=== PATIENT | male | born 1950 | race Caucasian/White ===

== ENCOUNTER 2017-09-07 18:25 | Inpatient (IN) | payer OTHER ==
--- OUTSIDE RECORDS SUMMARY | 2017-09-07 18:27 | XMS REPORT | Clinical Summary ---
:1950 Author Organization [facility] Address [address] [place] [phone] Phone Care Team Providers Name Role Phone Unavailable Primary Care Provider Unavailable Allergies Not on File Current Medications Not on file Active Problems Not on file Social History Tobacco Use Types Packs/Day Years Used Date Never Assessed Sex Assigned at Date Recorded Not on file Last Filed Vital Signs Not on file Plan of Treatment Not on file Results Not on fileafter 09/06/2016
--- OUTSIDE RECORDS SUMMARY | 2017-09-07 18:28 | XMS REPORT ---
:1950 [facility] Address Formerly [facility] Robin Joyner [address] [place] [id number] Care Team Providers Name Role Phone Unavailable Unavailable Unavailable Problems This patient has no known problems. Allergies, Adverse Reactions, Alerts This patient has no known allergies or adverse reactions. Medications This patient has no known medications. Results Test Description Test Time Test Comments Text Results Atomic Results Result Comments NM BONE SPECT SCAN CLINICAL INDICATION: dx: m43.26, m48.06, lumbar spine abnormality, chronic lower back pain, rt rib pain, left arm fx beforeMODALITY: One[employer] dual head gamma cameraTECHNIQUE: 25 mCi Tc 99m MDP are injected IV. After a suitable time delay, whole body imaging images were obtained. SPECT imaging of the lumbar spine is performed with computer and physician-assisted 2-D and 3-D reconstruction.FINDINGS:COMPARISON: Lumbar spine performed 05/24/2017.Global fusion has been accomplished at L4-5. Five lumbar-type vertebra are present. Anterior spondylosis is most prominent at L1-2 and L2-3. 3.5 mm retrolisthesis of L3 is noted in the neutral position. This increases to 5.0 mm in flexion and measures 3.5 mm in extension.Symmetric bilateral renal function is observed.Moderate arthritic uptake is noted at the acromioclavicular joints bilaterally. Mild bilateral glenohumeral, mild to moderate bilateral sternoclavicular, mild to moderate medial compartment left knee, mild left ankle and bilateral midfoot arthritis is also seen. There is mild diffuse thoracic spondylosis observed.SPECT imaging of the lumbar spine demonstrates no significant intervertebral disc uptake to be present. There is moderate uptake present at the left L5-S1 facet. Mild uptake is seen at the right L5-S1 facet.IMPRESSION:See comments above. Activity on the left may lie within the facet or represent reactive changes related to trans pedicle screw.PQRS 147: [id number]
--- NOTE | 2017-09-07 19:23 | RAD REPORT ---
EXAM DESCRIPTION: RAD - Chest Single View - 09/07/2017 6:54 pm CLINICAL HISTORY: Cough COMPARISON: March 2017 TECHNIQUE: AP portable chest image was obtained 1849 hours . FINDINGS: Linear atelectasis or scarring in the left base. No peripheral mass or consolidation. Smal l granuloma seen in the right lung field. Lung markings are not substantially different the compariso n. Trachea is midline. Heart and vasculature are normal. No measurable pleural effusion and no pneumo thorax. No gross bony abnormality seen. No acute aortic findings suspected. IMPRESSION: No acute cardiopulmonary process. Chronic chest findings, detailed above, are similar to the comparison study.
--- NOTE | 2017-09-07 19:28 | RAD REPORT ---
EXAM DESCRIPTION: CT - Stone Protocol - 09/07/2017 6:57 pm CLINICAL HISTORY: Abdominal pain, back pain, nausea, fever COMPARISON: CT study November 2015 TECHNIQUE: Axial 5 mm thick images were obtained without oral or IV contrast. The [id number] span s the entirety of the system partially obscuring uppermost abdomen and lung bases. All CT scans are performed using dose optimization technique as appropriate and may include automated exposure control or mA/KV adjustment according to patient size. FINDINGS: No hydronephrosis is present and no obstructing ureteral calculi. No suspicious renal mass es. Isodense masses and pyelonephritis are not excluded on a stone protocol CT scan. Urinary bladder is contracted limiting detail. No bladder calculi. Prostate gland is normal size. There are numerous central calcifications similar to prior examination. Seminal vesicles within normal limits. Liver shows a mild diffuse fatty infiltration. No focal liver lesion. No spleen or pancreatic acute f inding. Cholecystectomy clips are present. No biliary tree dilatation. No significant adrenal finding . No suspicious bowel findings. No appendicitis. There is a very small fat only umbilical hernia. Bilateral inguinal hernia surgical changes are noted . No mass or bulky lymphadenopathy. No free air, free fluid or inflammatory stranding. Disc and bony degenerative changes are present. There is postsurgical change in the lower lumbar spin e. IMPRESSION: No bowel obstruction, free air or surgically emergent finding. No hydronephrosis or obstructing calculus. Isodense masses and pyelonephritis are not excluded on sto ne protocol technique.Urinary bladder is too contracted for assessment. Disc and bony degenerative change along with postsurgical change. No acute bone or disc finding ident ifiable. Mild fatty infiltration of the liver.
[2017-09-07] MEDS ORDERED: CEFTRIAXONE 1000 MG/VIAL ONE (19:38)
[2017-09-07] MEDS ORDERED: NA CHLORIDE 0.9% 100 ML IV ONE (19:38)
[2017-09-07] MEDS ORDERED: NA CHLORIDE 0.9% 1,000 ML ONE (19:38)
[2017-09-07 19:48] LABS: Absolute Lymphocytes (CBC) 1.2 K/uL (0.7-4.9); Absolute Monocytes 1.2 K/uL (0.1-1.3); Absolute Neutrophil 8.8 K/uL (1.8-8.0); Basophils % 0.4 % (0-1.3); Eosinophils % 0.5 % (0-4.4); Hematocrit 44.2 % (39.6-49.0); Lymphocytes % 10.3 % (15.3-44.8); MCH 32.2 pg (27.0-35.0); MCV 94.6 fL (80-100); MPV 8.7 fL (7.6-11.3); Monocytes % 10.4 % (3.3-12.3); RBC Red Blood Cell Count 4.67 M/uL (4.33-5.43)
[2017-09-07 19:50] LABS: Urine Blood TRACE (NEG); Urine Glucose NEGATIVE (NEG); Urine Protein NEGATIVE (NEG)
[2017-09-07 19:52] LABS: Protime INR 1.07
[2017-09-07 19:58] LABS: Bicarbonate 28 mEq/L (21-31); Glucose Level 101 mg/dL (65-120); Lipase 20 U/L (22-51); Sodium Level 135 mEq/L (135-145)
[2017-09-07 20:03] LABS: ALT/SGPT 28 IU/L (10-60); AST/SGOT 19 IU/L (10-42); Albumin 4.1 g/dL (3.2-5.5); Alkaline Phosphatase 82 IU/L (42-121); BUN Blood Urea Nitrogen 16 mg/dL (6-20); Bilirubin Direct 0.1 mg/dL (0-0.2); Bilirubin Total 0.9 mg/dL (0.3-1.2); Creatine Phosphokinase 55 IU/L (22-269); Magnesium 1.9 mg/dL (1.8-2.5); Protein, Total 6.9 g/dL (6.0-8.3)
[2017-09-07 20:06] LABS: CKMB Creatine Kinase MB 1.6 ng/ml (0.3-4.0)
[2017-09-07] MEDS ORDERED: ACETAMINOPHEN 500 MG TAB ONE (20:34)
--- NOTE | 2017-09-07 20:52 | EDPHYS ---
Physician Documentation [facility] Name: Jacinto Hinton Jr Age: 67 yrs Sex: Male : 1950 Arrival Date: 09/07/2017 Time: 18:28 Bed 18 Private MD: Jay Holder ED Physician Jin Penaloza HPI: 09/07 19:21 This 67 yrs old Male presents to ER via Ambulatory with complaints of Fever, cesar Urinary Problem, High Blood Pressure. 19:21 The patient reports fever, that was measured at 102 degrees Fahrenheit. Onset: The cesar symptoms/episode began/occurred 2 day(s) ago. Modifying factors: there are no obvious modifying factors. 19:22 The patient presents with urinary symptoms, dribbling of urine, dysuria, urinary cesar frequency, hesitancy to initiate urine stream, retention. Modifying factors: The symptoms are alleviated by nothing, the symptoms are aggravated by movement. Associated signs and symptoms: Pertinent positives: fever. Severity of symptoms: At their worst the symptoms were mild, moderate, in the emergency department the symptoms have improved, mildly. Associated signs and symptoms: Pertinent positives: chills, nausea. Historical: - Allergies: 18:34 PENICILLINS; sv - Home Meds: 18:34 Bystolic 20 mg Oral tab 1 tab once daily [Active]; Nexium 40 mg Oral cpDR 1 cap once sv daily [Active]; Demadex Oral [Active]; Celebrex Oral [Active]; 18:34 Clonidine Oral [Active]; sv - PMHx: 18:34 Hypertension; sv - PSHx: 18:34 back surgery; Cholecystectomy; Exploratory lap; Knee surgery; sv - Immunization history:: Adult Immunizations up to date. - Social history:: Smoking status: Patient/guardian denies using tobacco, Patient uses alcohol, occasionally. - Ebola Screening: : No symptoms or risks identified at this time. - Family history:: not pertinent. ROS: 19:22 Constitutional: Negative for fever, chills, and weight loss, Eyes: Negative for injury, cesar pain, redness, and discharge, ENT: Negative for injury, pain, and discharge, Neck: Negative for injury, pain, and swelling, Cardiovascular: Negative for chest pain, palpitations, and edema, Respiratory: Negative for shortness of breath, cough, wheezing, and pleuritic chest pain, Back: Negative for injury and pain, : Negative for injury, bleeding, discharge, and swelling, MS/Extremity: Negative for injury and deformity, Skin: Negative for injury, rash, and discoloration, Neuro: Negative for headache, weakness, numbness, tingling, and seizure, Psych: Negative for depression, anxiety, suicide ideation, homicidal ideation, and hallucinations, Allergy/Immunology: Negative for hives, rash, and allergies, Endocrine: Negative for neck swelling, polydipsia, polyuria, polyphagia, and marked weight changes, Hematologic/Lymphatic: Negative for swollen nodes, abnormal bleeding, and unusual bruising. 19:22 Abdomen/GI: Positive for abdominal pain, of the suprapubic area, right lower quadrant and left lower quadrant. Exam: 19:22 Constitutional: This is a well developed, well nourished patient who is awake, alert, cesar and in no acute distress. Head/Face: Normocephalic, atraumatic. Eyes: Pupils equal round and reactive to light, extra-ocular motions intact. Lids and lashes normal. Conjunctiva and sclera are non-icteric and not injected. Cornea within normal limits. Periorbital areas with no swelling, redness, or edema. ENT: Nares patent. No nasal discharge, no septal abnormalities noted. Tympanic membranes are normal and external auditory canals are clear. Oropharynx with no redness, swelling, or masses, exudates, or evidence of obstruction, uvula midline. Mucous membranes moist. Neck: Trachea midline, no thyromegaly or masses palpated, and no cervical lymphadenopathy. Supple, full range of motion without nuchal rigidity, or vertebral point tenderness. No Meningismus. Chest/axilla: Normal chest wall appearance and motion. Nontender with no deformity. No lesions are appreciated. Cardiovascular: Regular rate and rhythm with a normal S1 and S2. No gallops, murmurs, or rubs. Normal PMI, no JVD. No pulse deficits. Respiratory: Lungs have equal breath sounds bilaterally, clear to auscultation and percussion. No rales, rhonchi or wheezes noted. No increased work of breathing, no retractions or nasal flaring. Back: No spinal tenderness. No costovertebral tenderness. Full range of motion. Skin: Warm, dry with normal turgor. Normal color with no rashes, no lesions, and no evidence of cellulitis. MS/ Extremity: Pulses equal, no cyanosis. Neurovascular intact. Full, normal range of motion. Neuro: Awake and alert, GCS 15, oriented to person, place, time, and situation. Cranial nerves II-XII grossly intact. Motor strength 5/5 in all extremities. Sensory grossly intact. Cerebellar exam normal. Normal gait. Psych: Awake, alert, with orientation to person, place and time. Behavior, mood, and affect are within normal limits. 19:22 Respiratory: the patient does not display signs of respiratory distress, Respirations: normal, Breath sounds: are clear throughout. 19:22 Abdomen/GI: Inspection: distension, Bowel sounds: normal, Palpation: mild abdominal tenderness, in the suprapubic area. Vital Signs: 18:34 BP 190 / 104; Pulse 82; Resp 16; Temp 99.6; Pulse Ox 98% ; Weight 97.52 kg; Height 5 sv ft. 9 in. (175.26 cm); Pain 6/10; 19:55 BP 152 / 87; Pulse 72; Resp 17 S; Pulse Ox 95% on R/A; Pain 7/10; jd3 21:01 BP 130 / 66; Pulse 70; Resp 16 S; Pulse Ox 95% on R/A; jd3 22:20 BP 120 / 71; Pulse 67; Resp 18 S; Pulse Ox 95% on R/A; Pain 6/10; jd3 23:24 BP 103 / 71; Pulse 64; Resp 16 S; Pulse Ox 96% on R/A; Pain 1/10; jd3 18:34 Body Mass Index 31.75 (97.52 kg, 175.26 cm) sv MDM: 18:37 Patient medically screened. [facility] 19:26 Data reviewed: radiologic studies, plain films. Data reviewed: radiologic studies, CT cesar scan. 09/07 18:41 Order name: Basic Metabolic Panel; Complete Time: 20:43 [facility] 09/07 18:41 Order name: BNP; Complete Time: 20:43 [facility] 09/07 18:41 Order name: CBC with Diff; Complete Time: 20:43 [facility] 09/07 18:41 Order name: Ckmb; Complete Time: 20:43 [facility] 09/07 18:41 Order name: CPK; Complete Time: 20:43 [facility] 09/07 18:41 Order name: LFT's; Complete Time: 20:43 [facility] 09/07 18:41 Order name: Magnesium; Complete Time: 20:43 [facility] 09/07 18:41 Order name: PT-INR; Complete Time: 20:43 [facility] 09/07 18:41 Order name: Ptt, Activated; Complete Time: 20:43 [facility] 09/07 18:41 Order name: Troponin (emerg Dept Use Only); Complete Time: 20:43 [facility] 09/07 18:41 Order name: Lipase; Complete Time: 20:43 [facility] 09/07 18:41 Order name: Procalcitonin; Complete Time: 20:43 [facility] 09/07 18:41 Order name: Lactate; Complete Time: 20:43 [facility] 09/07 18:41 Order name: Urine Culture 09/07 18:41 Order name: XRAY Chest (1 view); Complete Time: 19:51 [facility] 09/07 18:41 Order name: EKG; Complete Time: 18:42 [facility] 09/07 18:41 Order name: Cardiac monitoring; Complete Time: 19:39 [facility] 09/07 18:41 Order name: EKG - Nurse/Tech; Complete Time: 19:39 [facility] 09/07 18:41 Order name: IV Saline Lock; Complete Time: 19:39 [facility] 09/07 18:41 Order name: Labs collected and sent; Complete Time: 19:39 [facility] 09/07 18:41 Order name: O2 Per Protocol; Complete Time: 19:39 [facility] 09/07 18:41 Order name: CT Stone Protocol; Complete Time: 19:51 [facility] 09/07 19:46 Order name: Urine Dipstick--Ancillary (enter results); Complete Time: 19:51 09/07 18:41 Order name: O2 Sat Monitoring; Complete Time: 19:39 [facility] 09/07 18:41 Order name: Urine Dipstick-Ancillary (obtain specimen); Complete Time: 19:39 [facility] Administered Medications: 19:51 Drug: Rocephin - (cefTRIAXone) 2 grams Route: IVPB; Infused Over: 30 mins; Site: right jd3 antecubital; 20:45 Follow up: Response: No adverse reaction; IV Status: Completed infusion jd3 19:51 Drug: NS 0.9% 1000 ml Route: IV; Rate: 1 bolus; Site: right antecubital; jd3 22:12 Follow up: Response: No adverse reaction; IV Status: Completed infusion; IV Intake: jd3 1000ml 20:46 Drug: Tylenol 1000 mg Route: PO; jd3 22:12 Follow up: Response: No adverse reaction jd3 22:06 Drug: Pyridium 200 mg Route: PO; jd3 23:24 Follow up: Response: No adverse reaction; Marked relief of symptoms jd3 22:12 Drug: fentaNYL (PF) 25 mcg Route: IVP; Site: right antecubital; jd3 23:24 Follow up: Response: Pain is decreased jd3 22:12 Drug: Zofran 4 mg Route: IVP; Site: right antecubital; jd3 23:23 Follow up: Response: Nausea is decreased jd3 23:23 Not Given (Physician Discretion): fentaNYL (PF) 25 mcg IVP once jd3 Disposition: 09/07/17 20:50 Hospitalization ordered by Rani Bernardo for Inpatient Admission. Preliminary diagnosis are Fever, unspecified, Dysuria, Abdominal tenderness, Weakness. - Bed requested for Telemetry/MedSurg (Inpatient). - Status is Inpatient Admission. jd3 - Condition is Fair. - Problem is new. - Symptoms have improved. UTI on Admission? Yes Signatures: Dispatcher [employer] EDStephany Schofield RN RN sv Woody, Diana, RN RN dw Anderson, Corey, MD MD cha Davies, Jonathon, RN RN jd3 Botello, Elizabeth eb Corrections: (The following items were deleted from the chart) 19:27 19:26 Data reviewed: vital signs, nurses notes, lab test result(s), EKG, radiologic cesar studies, CT scan, ultrasound, cesar 20:57 20:50 Hospitalization Ordered by Rani Bernardo MD for Inpatient Admission. Preliminary eb diagnosis is Fever, unspecified; Dysuria; Abdominal tenderness; Weakness. Bed requested for Telemetry/MedSurg (Inpatient). Status is Inpatient Admission. Condition is Fair. Problem is new. Symptoms have improved. UTI on Admission? Yes. cesar 21:14 20:57 09/07/2017 20:50 Hospitalization Ordered by Rani Bernardo MD for Inpatient dw Admission. Preliminary diagnosis is Fever, unspecified; Dysuria; Abdominal tenderness; Weakness. Bed requested for Telemetry/MedSurg (Inpatient). Status is Inpatient Admission. Condition is Fair. Problem is new. Symptoms have improved. UTI on Admission? Yes. eb 23:26 21:14 09/07/2017 20:50 Hospitalization Ordered by Rani Bernardo MD for Inpatient jd3 Admission. Preliminary diagnosis is Fever, unspecified; Dysuria; Abdominal tenderness; Weakness. Bed requested for Telemetry/MedSurg (Inpatient). Status is Inpatient Admission. Condition is Fair. Problem is new. Symptoms have improved. UTI on Admission? Yes. dw
--- NOTE | 2017-09-07 20:52 | ER ---
Nurse's Notes [facility] Name: Jacinto Hinton Jr Age: 67 yrs Sex: Male : 1950 Arrival Date: 09/07/2017 Time: 18:28 Bed 18 Private MD: Jay Holder Diagnosis: Fever, unspecified;Dysuria;Abdominal tenderness;Weakness Presentation: 09/07 18:30 Presenting complaint: Patient states: "I had back injections done Wednesday and since then sv he's been trickling urine. My BP has been high at home and I've taken Clonidine today twice last dose was at 1600." c/o nausea, urinary urgency, burning, fever (today). Transition of care: patient was not received from another setting of care. Onset of symptoms was September 03, 2017. Care prior to arrival: None. 18:30 Method Of Arrival: Ambulatory sv 18:30 Acuity: OWEN 2 sv 23:18 Risk Assessment: Do you want to hurt yourself or someone else? Patient reports no jd3 desire to harm self or others. Initial Sepsis Screen: Does the patient meet any 2 criteria? No. Patient's initial sepsis screen is negative. Does the patient have a suspected source of infection? No. Patient's initial sepsis screen is negative. Historical: - Allergies: 18:34 PENICILLINS; sv - Home Meds: 18:34 Bystolic 20 mg Oral tab 1 tab once daily [Active]; Nexium 40 mg Oral cpDR 1 cap once sv daily [Active]; Demadex Oral [Active]; Celebrex Oral [Active]; 18:34 Clonidine Oral [Active]; sv - PMHx: 18:34 Hypertension; sv - PSHx: 18:34 back surgery; Cholecystectomy; Exploratory lap; Knee surgery; sv - Immunization history:: Adult Immunizations up to date. - Social history:: Smoking status: Patient/guardian denies using tobacco, Patient uses alcohol, occasionally. - Ebola Screening: : No symptoms or risks identified at this time. - Family history:: not pertinent. Screenin:16 Abuse screen: Denies threats or abuse. Nutritional screening: No deficits noted. jd3 Tuberculosis screening: No symptoms or risk factors identified. Fall Risk None identified. Assessment: 19:15 General: Appears uncomfortable, Behavior is calm, cooperative, appropriate for age. jd3 Pain: Complains of pain in back Pain currently is 7 out of 10 on a pain scale. Quality of pain is described as aching, sharp, Also complains of nausea. Neuro: Level of Consciousness is awake, alert, obeys commands, Oriented to person, place, time, situation. Cardiovascular: Heart tones S1 S2 present Capillary refill < 3 seconds Patient's skin is warm and dry. Rhythm is regular. Respiratory: Airway is patent Respiratory effort is even, unlabored, Respiratory pattern is regular, symmetrical, Breath sounds are clear bilaterally. GI: Abdomen is round Bowel sounds present X 4 quads. Abd is soft and non tender X 4 quads. Reports nausea. : Reports burning with urination, urinary frequency. EENT: No signs and/or symptoms were reported regarding the EENT system. Derm: Skin is intact, Skin is dry, Skin is normal, Skin temperature is warm. Musculoskeletal: Circulation, motion, and sensation intact. Range of motion: intact in all extremities. 20:15 Reassessment: Patient appears in no apparent distress at this time. Patient and/or jd3 family updated on plan of care and expected duration. Pain level reassessed. Patient is alert, oriented x 3, equal unlabored respirations, skin warm/dry/pink. 21:15 Reassessment: Patient appears in no apparent distress at this time. Patient and/or jd3 family updated on plan of care and expected duration. Pain level reassessed. Patient is alert, oriented x 3, equal unlabored respirations, skin warm/dry/pink. 22:15 Reassessment: Patient appears in no apparent distress at this time. Patient and/or jd3 family updated on plan of care and expected duration. Pain level reassessed. Patient is alert, oriented x 3, equal unlabored respirations, skin warm/dry/pink. reporting pain, provider notified, new orders received. 23:25 Reassessment: Patient appears in no apparent distress at this time. Patient and/or jd3 family updated on plan of care and expected duration. Pain level reassessed. Patient is alert, oriented x 3, equal unlabored respirations, skin warm/dry/pink. pt reported understanding of need for admit. Vital Signs: 18:34 BP 190 / 104; Pulse 82; Resp 16; Temp 99.6; Pulse Ox 98% ; Weight 97.52 kg; Height 5 sv ft. 9 in. (175.26 cm); Pain 6/10; 19:55 BP 152 / 87; Pulse 72; Resp 17 S; Pulse Ox 95% on R/A; Pain 7/10; jd3 21:01 BP 130 / 66; Pulse 70; Resp 16 S; Pulse Ox 95% on R/A; jd3 22:20 BP 120 / 71; Pulse 67; Resp 18 S; Pulse Ox 95% on R/A; Pain 6/10; jd3 23:24 BP 103 / 71; Pulse 64; Resp 16 S; Pulse Ox 96% on R/A; Pain 1/10; jd3 18:34 Body Mass Index 31.75 (97.52 kg, 175.26 cm) sv ED Course: 18:28 Patient arrived in ED. mr 18:29 Jay Holder MD is Private Physician. mr 18:33 Triage completed. sv 18:35 Arm band placed on left wrist. sv 18:37 Jin Penaloza MD is Attending Physician. cesar 18:45 Sallie Adair RN is Primary Nurse. 18:[address] via wheelchair. mw3 18:54 X-ray completed. Portable x-ray completed in exam room. Patient tolerated procedure kc2 well. 18:55 XRAY Chest (1 view) In Process Unspecified. EDMS 18:56 CT completed. Patient tolerated procedure well. mw3 18:56 Patient moved back from CT. mw3 18:57 CT Stone Protocol In Process Unspecified. EDMS 19:25 Inserted saline lock: 20 gauge in right antecubital area, using aseptic technique. jd3 Blood collected. 19:35 Jose Guadalupe Plasencia RN is Primary Nurse. jd3 20:49 Rani Bernardo MD is Hospitalizing Provider. cesar 23:20 Patient has correct armband on for positive identification. Bed in low position. Call jd3 light in reach. Side rails up X2. Adult w/ patient. 23:21 No provider procedures requiring assistance completed. Patient admitted, IV remains in jd3 place. Administered Medications: 19:51 Drug: Rocephin - (cefTRIAXone) 2 grams Route: IVPB; Infused Over: 30 mins; Site: right jd3 antecubital; 20:45 Follow up: Response: No adverse reaction; IV Status: Completed infusion jd3 19:51 Drug: NS 0.9% 1000 ml Route: IV; Rate: 1 bolus; Site: right antecubital; jd3 22:12 Follow up: Response: No adverse reaction; IV Status: Completed infusion; IV Intake: jd3 1000ml 20:46 Drug: Tylenol 1000 mg Route: PO; jd3 22:12 Follow up: Response: No adverse reaction jd3 22:06 Drug: Pyridium 200 mg Route: PO; jd3 23:24 Follow up: Response: No adverse reaction; Marked relief of symptoms jd3 22:12 Drug: fentaNYL (PF) 25 mcg Route: IVP; Site: right antecubital; jd3 23:24 Follow up: Response: Pain is decreased jd3 22:12 Drug: Zofran 4 mg Route: IVP; Site: right antecubital; jd3 23:23 Follow up: Response: Nausea is decreased jd3 23:23 Not Given (Physician Discretion): fentaNYL (PF) 25 mcg IVP once jd3 Intake: 22:12 IV: 1000ml; Total: 1000ml. jd3 Outcome: 20:50 Decision to Hospitalize by Provider. cesar 23:21 Admitted to Med/surg accompanied by tech, room 216, Report called to Katja ARAUJO jalice 23:21 Condition: stable 23:21 Instructed on the need for admit, Demonstrated understanding of instructions. 23:26 Patient left the ED. jd3 Signatures: Dispatcher [employer] EDMS Sallie Adair, Stephany Cardoza RN, ch, RN RN sv Anderson, Corey, MD MD cha Rivera, Maria mr Sabina Hernandez Jonathon, RN RN jd3 Willis, Michelle mw3 Corrections: (The following items were deleted from the chart) 18:57 18:[address] Patient moved back [address]. Patient moved back from radiology. mw3 mw3 23:25 22:20 BP 120 / 71; Pulse 67bpm; Resp 18bpm; Spontaneous; Pulse Ox 95% RA; jd3 jd3
[2017-09-07] MEDS ORDERED: PHENAZOPYRIDINE 100MG TAB PO ONE (21:21)
[2017-09-07] MEDS ORDERED: PHENAZOPYRIDINE 100MG TAB PO PRN (22:01)
[2017-09-07] MEDS ORDERED: FENTANYL CITR 100 MCG/2 ML IV PRN (22:01)
[2017-09-07] MEDS ORDERED: ONDANSETRON 4 MG/2 ML VIAL IV PRN (22:03)
--- NOTE | 2017-09-07 23:07 | P.HP ---
Certification for Inpatient Patient admitted to: Inpatient With expected LOS: >2 Midnights Practitioner: I am a practitioner with admitting privileges, knowledge of patient current condition, hospital course, and medical plan of care. Services: Services provided to patient in accordance with Admission requirements found in Title 42 Section 412.3 of the Code of Federal Regulations Patient History Date of Service: 09/07/17 Reason for admission: UTI History of Present Illness: Mr Hinton is a 67 years old male with history of HTN, dyslipidemia, chronic back pain s/p surgery, with recurrent steroids shots application, who came to ED complaining of lower abdominal pain. His symptoms started today, it was associated with painful urination, urinary hesitancy, and increasing urinary frequency. No blood in urine. He had fever at home 101.4F, no nausea or vomiting. In ER his temp was 99.6F, lab work remarkable for normal WBC count, normal procalcitonin. CT abd/pelvis shows no acute abnormalities. The patient has had inguinal hernia repair 2 weeks ago. He does not remember had a More catheter placed. Allergies Penicillins Allergy (Mild, Verified 07/06/12 17:00) childhood reaction- rash Home Medications: Nebivolol HCl [Bystolic] 10 mg PO DAILY 02/02/12 Rosuvastatin Calcium [Crestor] 10 mg PO DAILY 02/02/12 Torsemide [Demadex] 20 mg PO DAILY 02/02/12 Esomeprazole Magnesium [Nexium] 40 mg PO BID 07/06/12 Albuterol Inhaler [Ventolin Inhaler*] 1 puff IH Q4H #1 hfa.aer.ad 07/07/12 Levofloxacin [Levaquin*] 500 mg PO DAILY #5 tab 07/07/12 Methylprednisolone [Medrol*] 4 mg PO UD #1 tab 07/07/12 Celecoxib [Celebrex] 400 mg PO DAILY 05/28/15 Oseltamivir [Tamiflu*] 2 cap PO BID 05/28/15 - Past Medical/Surgical History Diabetic: No -: htn -: hyperlipidemia -: lap chas -: toncillectomy -: exploratory surg. in [facility] - frac. back -: 2 L knee surg -: 3 R knee surg. -: R arm/shoulder velma from horse kick -: 3 hernia repairs -: L ft surg. - Family History Father -: Heart disease Mother -: Heart disease, Diabetes Sister -: Stroke - Social History Smoking Status: Never smoker Alcohol use: Yes CD- Drugs: No Caffeine use: Yes Place of Residence: Home Review of Systems 10-point ROS is otherwise unremarkable Physical Examination - Physical Exam General: Alert, In no apparent distress HEENT: Atraumatic, PERRLA, Mucous membr. moist/pink, EOMI, Sclerae nonicteric Neck: Supple, 2+ carotid pulse no bruit, No LAD, Without JVD or thyroid abnormality Respiratory: Clear to auscultation bilaterally, Normal air movement Cardiovascular: Regular rate/rhythm, Normal S1 S2 Gastrointestinal: Normal bowel sounds, Tenderness (lower abdomen) Musculoskeletal: No tenderness Integumentary: No rashes Neurological: Normal speech, Normal strength at 5/5 x4 extr, Normal tone, Normal affect Lymphatics: No axilla or inguinal lymphadenopathy - Studies Laboratory Data (last 24 hrs) 09/07/17 19:25: PT 12.6 H, INR 1.07, APTT 24.6 09/07/17 19:25: WBC 11.3 H, Hgb 15.0, Hct 44.2, Plt Count 165 09/07/17 19:25: B-Natriuretic Peptide 96 09/07/17 19:25: Sodium 135, Potassium 4.0, BUN 16, Creatinine 0.83, Glucose 101 , Magnesium 1.9 D, Total Bilirubin 0.9, AST 19, ALT 28, Alkaline Phosphatase 82 , Lipase 20 L Assessment and Plan - Problems (Diagnosis) (1) UTI (urinary tract infection) Current Visit: Yes Status: Acute Qualifiers: Urinary tract infection type: acute cystitis Hematuria presence: without hematuria Qualified Code(s): N30.00 - Acute cystitis without hematuria (2) Chronic back pain Current Visit: Yes Status: Acute (3) HTN (hypertension) Current Visit: Yes Status: Acute Qualifiers: Hypertension type: essential hypertension Qualified Code(s): I10 - Essential (primary) hypertension - Plan Mr Hinton will be admitted to the hospital due to UTI, possible prostatitis, in order to receive IV antibiotics. Will check PSA. Start empiric treatment with Levaquin. - Advance Directives Does patient have a Living Will: Yes Does patient have a Durable POA for Healthcare: Yes - Code Status/Comfort Care Code Status Assessed: Yes Code Status: Full Code
[2017-09-08] MEDS: Levofloxacin 750mg IV 750 MG/150 ML BAG IV SCH ×2 (00:49→23:36)
[2017-09-08] MEDS: NA CHLORIDE 0.9% 1,000 ML IV SCH ×3 (00:50→21:05)
[2017-09-08] MEDS: KETOROLAC 30 MG/ML INJ IV PRN ×3 (03:34→21:09)
[2017-09-08 04:24] VITALS: O2SAT 95
[2017-09-08] MEDS: ACETAMINOPHEN 500 MG TAB PO PRN ×3 (05:04→19:10)
[2017-09-08 05:35] LABS: Absolute Lymphocytes (CBC) 1.5 K/uL (0.7-4.9); Absolute Monocytes 1.4 K/uL (0.1-1.3); Absolute Neutrophil 8.9 K/uL (1.8-8.0); Basophils % 0.2 % (0-1.3); Eosinophils % 0.6 % (0-4.4); Hematocrit 42.3 % (39.6-49.0); Lymphocytes % 12.8 % (15.3-44.8); MCH 31.8 pg (27.0-35.0); MCV 96.6 fL (80-100); MPV 9.1 fL (7.6-11.3); Monocytes % 11.4 % (3.3-12.3); RBC Red Blood Cell Count 4.38 M/uL (4.33-5.43)
[2017-09-08 05:52] LABS: BUN Blood Urea Nitrogen 14 mg/dL (6-20); Bicarbonate 26 mEq/L (21-31); Glucose Level 102 mg/dL (65-120); Potassium 3.8 mEq/L (3.6-5.0); Sodium Level 137 mEq/L (135-145)
[2017-09-08] MEDS ORDERED: POTASSIUM CL SA 10 MEQ TAB PO ONE (06:13)
--- NOTE | 2017-09-08 07:43 | EKG ---
Test Date: 2017-09-07 Test Time: 19:19:36 Aix Administrator: MEASUREMENT RESULTS: Intervals: Rate: 75 SC: 156 QRSD: 84 QT: 360 QTc: 402 [place]: P: 57 SC: 156 QRS: 35 T: 21 INTERPRETIVE STATEMENTS: Normal sinus rhythm Normal ECG Compared to ECG 12/09/2015 16:45:40 Sinus bradycardia no longer present Electronically Signed On 09-08-17 07:42:57 CDT by Brooks Stephens
[2017-09-08] MEDS: ENOXAPARIN 40 MG/0.4 ML SQ SCH (09:00)
[2017-09-08] MEDS: NEBIVOLOL HCL 20 MG TABLET PO SCH (09:00)
--- NOTE | 2017-09-08 09:59 | P.PN ---
Subjective Date of Service: 09/08/17 Primary Care Provider: Dr. Holder(I am covering for him) Chief Complaint: UTI Subjective: Improving Physical Examination - Vital Signs Temperature: 100.2 F Blood Pressure: 134/69 Pulse: 65 Respirations: 18 Pulse Ox (%): 95 - Physical Exam General: Alert, In no apparent distress, Oriented x3, Cooperative HEENT: Atraumatic Neck: Supple Respiratory: Clear to auscultation bilaterally, Normal air movement Cardiovascular: Normal pulses, Regular rate/rhythm Gastrointestinal: Normal bowel sounds, Soft and benign, Non-distended, No masses , No rebound, No guarding, Tenderness (Lower pelvic pain improved) Musculoskeletal: No erythema, No tenderness, No warmth Integumentary: No tenderness/swelling, No erythema, No warmth, No cyanosis Neurological: Normal speech, Normal strength at 5/5 x4 extr, Normal tone, Normal affect - Studies Laboratory Data (last 24 hrs) 09/07/17 19:25: PT 12.6 H, INR 1.07, APTT 24.6 09/07/17 19:25: WBC 11.3 H, Hgb 15.0, Hct 44.2, Plt Count 165 09/07/17 19:25: B-Natriuretic Peptide 96 09/07/17 19:25: Sodium 135, Potassium 4.0, BUN 16, Creatinine 0.83, Glucose 101 , Magnesium 1.9 D, Total Bilirubin 0.9, AST 19, ALT 28, Alkaline Phosphatase 82 , Lipase 20 L Medications List Reviewed: Yes Assessment & Plan - Problems (Diagnosis) (1) Prostatitis Current Visit: Yes Status: Acute Plan: Suspect prostatitis. Will continue with IV antibiotic therapy. If urology consulted as the patient is a history of BPH with previous green light procedure. Anticipate discharge as early as today or tomorrow. Will discuss with urology. Qualifiers: Prostatitis type: acute Qualified Code(s): N41.0 - Acute prostatitis (2) Hyperlipidemia Current Visit: Yes Status: Chronic Plan: Will continue with his medication Qualifiers: Hyperlipidemia type: unspecified Qualified Code(s): E78.5 - Hyperlipidemia , unspecified (3) BPH (benign prostatic hyperplasia) Current Visit: Yes Status: Chronic Plan: Patient with history of BPH. PSA elevated. Patient with history of green light procedure. Urology consulted. Await further recommendations. Qualifiers: Lower urinary tract symptom presence: symptoms present Lower urinary tract symptom detail: straining on urination Qualified Code(s): N40.1 - Benign prostatic hyperplasia with lower urinary tract symptoms; R39.16 - Straining to void (4) Chronic back pain Onset Date: 09/08/17 Current Visit: Yes Status: Chronic Plan: Will provide medication for pain. (5) HTN (hypertension) Onset Date: 09/08/17 Current Visit: Yes Status: Chronic Plan: Will continue with his medication Qualifiers: Hypertension type: essential hypertension Qualified Code(s): I10 - Essential (primary) hypertension (6) UTI (urinary tract infection) Onset Date: 09/08/17 Current Visit: Yes Status: Acute Plan: Likely prostatitis. Will continue with medication-antibiotic therapy. Urine culture obtained. Qualifiers: Urinary tract infection type: acute cystitis Hematuria presence: without hematuria Qualified Code(s): N30.00 - Acute cystitis without hematuria Discharge Plan: Home Plan to discharge in: 24 Hours Time Spent Managing Pts Care (In Minutes): 55
[2017-09-08] MEDS: TRAMADOL HCL 50 MG TAB PO PRN ×2 (14:31→23:36)
--- NOTE | 2017-09-08 15:38 | RAD REPORT ---
EXAM DESCRIPTION: US - Urinary Bladder - 09/08/2017 3:08 pm FINDINGS: Limited examination was performed. No gross bladder wall mass or intraluminal filling defe ct. Postvoid residual was 20 milliliters.
[2017-09-08] MEDS: HYDRALAZINE HCL 20 MG/ML VIAL IV PRN (18:08)
[2017-09-08] MEDS ORDERED: ATORVASTATIN 10 MG TAB PO SCH (21:00)
[2017-09-09] MEDS: NA CHLORIDE 0.9% 1,000 ML IV SCH (03:38)
[2017-09-09] MEDS: HYDRALAZINE HCL 20 MG/ML VIAL IV PRN (03:42)
[2017-09-09] MEDS: KETOROLAC 30 MG/ML INJ IV PRN ×2 (03:46→09:56)
[2017-09-09] MEDS: ACETAMINOPHEN 500 MG TAB PO PRN (03:47)
[2017-09-09 04:15] VITALS: TEMP 98.8
[2017-09-09 04:55] LABS: Absolute Lymphocytes (CBC) 1.8 K/uL (0.7-4.9); Absolute Monocytes 1.1 K/uL (0.1-1.3); Absolute Neutrophil 7.4 K/uL (1.8-8.0); Basophils % 0.5 % (0-1.3); Eosinophils % 0.9 % (0-4.4); Hematocrit 44.7 % (39.6-49.0); Lymphocytes % 17.2 % (15.3-44.8); MCH 32.7 pg (27.0-35.0); MCV 97.1 fL (80-100); MPV 9.2 fL (7.6-11.3); Monocytes % 10.8 % (3.3-12.3)
[2017-09-09 05:08] LABS: BUN Blood Urea Nitrogen 13 mg/dL (6-20); Bicarbonate 25 mEq/L (21-31); Glucose Level 123 mg/dL (65-120); Magnesium 2.1 mg/dL (1.8-2.5); Potassium 4.4 mEq/L (3.6-5.0); Sodium Level 137 mEq/L (135-145)
[2017-09-09 05:44] VITALS: BMI 32.5
[2017-09-09] MEDS ORDERED: PANTOPRAZOLE 40MG TABLET PO SCH (06:30)
[2017-09-09] MEDS: TRAMADOL HCL 50 MG TAB PO PRN (07:35)
--- NOTE | 2017-09-09 08:14 | CON ---
History Of Present Illness: This is a pleasant 67-year-old gentleman with history of BPH, s/p GreenLight laser done by Dr. Álvarez about 4-5 years ago, but he said recently he has noticed that the symptoms are coming back with lower urinary tract symptomatology, weak stream, getting up at nights, some straining, and now recently said he felt like he has been brewing a UTI over a month or so and he got a steroid shot 5 days ago, which seems to have flare things up into a full-blown UTI now. Therefore, he came to the hospital. His PSA is about 2.5. He had a PSA of 14 about a year ago. During the time he had an infection, he believes. He was admitted for high fever, febrile UTI, temperature 101.4. CT scan did not show any abnormalities. Bladder looked like it was full. The patient also had right inguinal hernia repair 2 weeks ago. He Does not remember More catheter was placed, if there was any difficulty. Postvoid residual was done on the floor, came back 95 cc, but the patient has been voiding each time about 200 cc, so now I need to rule out overflow or partial retention, so we are going to order standard pelvic ultrasound for postvoid residuals. Once he voids, we will let the nurse know and she will call Radiology. Allergies: PENICILLIN, CHILDHOOD REACTION HAD A RASH. Home Medications: Bystolic, Crestor, Demadex, Nexium, Ventolin, Levaquin, Medrol Dosepak, _Tamiflu. Past Medical History: Hypertension, hyperlipidemia, history of lap chas, tonsillectomy, green light laser,___ surgery in [place], fractured back, also has a history of asthma, history of back issues, history of knee surgery bilaterally, right arm shoulder, from horse kick, 3 hernia repairs, and left foot surgery. Family History: Father had heart disease. Mother had heart disease and diabetes as well as stroke. Social History: Never smoked. Alcohol use, yes. Drug use, no. Caffeine use, yes. Resides at home. Review of Systems: A 10-point review of system otherwise unremarkable. Physical Examination: VITAL SIGNS: Temperature 98.3, pulse rate 54, respiratory rate 16, BP 177/84, and sats 97%. HEENT: Atraumatic, normocephalic. NECK: Supple. RESPIRATORY: Clear bilaterally. CARDIOVASCULAR: S1, S2. MUSCULOSKELETAL: normal, no abnormalities. ABDOMEN: Suprapubically is tender, could be UTI versus bladder. Laboratory Studies: White count 11.8, H and H 13.9 and 42.3, and platelet count 154. Coagulation normal. Chemistry; sodium 137, potassium 3.8, chloride 105, carbon dioxide 26, BUN 14, and creatinine 0.74, GFR greater than 90, glucose 102, and calcium 8.6. TSH 10.66, but this is in the face of urinary tract infection and urine cultures growing greater than 10 to the 5th CFU/mL so far. Assessment: Urinary tract infection, flared up after steroid shot. The patient is currently on Levaquin. We will continue antibiotics until final culture comes back. The patient will need to be evaluated with flexible cystoscopy in the office to rule out strictures, rule out recurrent BPH, and then make a definitive plan for the patient. SHABANA/ANGELIC Voice ID: [id number] Report ID: [id number] MTDD
[2017-09-09 09:22] VITALS: BP 144/68
[2017-09-09] MEDS: NEBIVOLOL HCL 20 MG TABLET PO SCH (09:50)
[2017-09-09] MEDS: ENOXAPARIN 40 MG/0.4 ML SQ SCH (09:50)
--- NOTE | 2017-09-09 16:42 | P.DS ---
Admission Date: 09/07/17 Discharge Date: 09/09/17 Primary Care Provider: Dr. Holder(I am covering for him) Disposition: ROUTINE DISCHARGE Discharge Condition: GOOD Reason for Admission: UTI Consultations: urology Brief History of Present Illness: Mr Hinton is a 67 years old male with history of HTN, dyslipidemia, chronic back pain s/p surgery, with recurrent steroids shots application, who came to ED complaining of lower abdominal pain. His symptoms started today, it was associated with painful urination, urinary hesitancy, and increasing urinary frequency. No blood in urine. He had fever at home 101.4F, no nausea or vomiting. In ER his temp was 99.6F, lab work remarkable for normal WBC count, normal procalcitonin. CT abd/pelvis shows no acute abnormalities. The patient has had inguinal hernia repair 2 weeks ago. He does not remember had a More catheter placed. Hospital Course: Overall during the hospital stay patient remained stable Patient was initially admitted to the hospital for sepsis most likely secondary to urinary tract infection versus prostatitis. Patient was started on IV Levaquin at that time. Sensitivities were back urine culture was positive for Klebsiella patient was switched over to p.o. Levaquin and patient did well overall. Urology was consulted who recommended the patient get outpatient workup with a cystoscopy for BPH and prostatitis. However this time the patient needs to have his infection under control before any invasive procedures can be done. Patient was thus discharged home on p.o. Levaquin and was asked to follow up with urology in about 1-2 weeks post discharge. Vital Signs/Physical Exam: Temp Pulse Resp BP Pulse Ox 98.8 F 70 18 144/68 H 94 09/09/17 08:00 09/09/17 09:50 09/09/17 08:00 09/09/17 09:50 09/09/17 08:00 General: Alert, In no apparent distress HEENT: Atraumatic, PERRLA, EOMI Neck: Supple, JVD not distended Respiratory: Clear to auscultation bilaterally, Normal air movement Cardiovascular: Regular rate/rhythm, Normal S1 S2 Gastrointestinal: Normal bowel sounds, No tenderness Musculoskeletal: No tenderness Integumentary: No rashes Neurological: Normal speech, Normal tone, Normal affect Lymphatics: No axilla or inguinal lymphadenopathy Laboratory Data at Discharge: WBC 10.5 K/uL (4.3-10.9) 09/09/17 04:17 Hgb 15.1 g/dL (13.6-17.9) 09/09/17 04:17 Hct 44.7 % (39.6-49.0) 09/09/17 04:17 Plt Count 170 K/uL (152-406) 09/09/17 04:17 PT 12.6 SECONDS (9.5-12.5) H 09/07/17 19:25 INR 1.07 09/07/17 19:25 APTT 24.6 SECONDS (24.3-36.9) 09/07/17 19:25 Sodium 137 mEq/L (135-145) 09/09/17 04:17 Potassium 4.4 mEq/L (3.6-5.0) 09/09/17 04:17 BUN 13 mg/dL (6-20) 09/09/17 04:17 Creatinine 0.66 mg/dL (0.61-1.24) 09/09/17 04:17 Glucose 123 mg/dL (65-120) H 09/09/17 04:17 Magnesium 2.1 mg/dL (1.8-2.5) 09/09/17 04:17 Total Bilirubin 0.9 mg/dL (0.3-1.2) 09/07/17 19:25 AST 19 IU/L (10-42) 09/07/17 19:25 ALT 28 IU/L (10-60) 09/07/17 19:25 Alkaline Phosphatase 82 IU/L (42-121) 09/07/17 19:25 B-Natriuretic Peptide 96 pg/ml (<=100) 09/07/17 19:25 Lipase 20 U/L (22-51) L 09/07/17 19:25 Home Medications: Celecoxib 200 mg PO DAILY 09/08/17 Clonidine HCl [Catapres] 0.1 mg PO DAILY 09/08/17 Esomeprazole Mag Trihydrate [Nexium] 40 mg PO DAILY 09/08/17 Nebivolol HCl [Bystolic*] 20 mg PO DAILY 09/08/17 Pravastatin Sodium 20 mg PO BEDTIME 09/08/17 Levofloxacin [Levaquin] 500 mg PO DAILY #14 tab 09/09/17 New Medications: Levofloxacin [Levaquin] 500 mg PO DAILY #14 tab Patient Discharge Instructions: Please f/u with Urology Dr Rodriguez office in 1 to 2 days post discharge. New Medication. Levaquin 500mg Daily for 14 days. You will be scheduled for Flexible cystoscopy at Dr Rodriguez office. Diet: Regular Activity: Ad yogesh Followup: Fletcher Rodriguez MD [ACTIVE - CAN ADMIT] - 1-2 Weeks (Follow up in office in 1- 2 weeks. Call to schedule an appointment. )
== END 2017-09-09 12:10 | disposition home or self-care (01) | DRG 690 ==
LOC: ER 18:25 → 2ND 20:50
PROVIDERS: ADMIT Internal Medicine; ATTEND Internal Medicine
DX: N39.0 Urinary tract infection, site not specified (principal); N41.0 Acute prostatitis; B96.1 Klebsiella pneumoniae [K. pneumoniae] as the cause of diseases classified elsewhere; I10 Essential (primary) hypertension; E78.5 Hyperlipidemia, unspecified; N40.1 Benign prostatic hyperplasia with lower urinary tract symptoms; R39.16 Straining to void; M54.9 Dorsalgia, unspecified; Z88.0 Allergy status to penicillin
CPT/HCPCS: 36415; 71045; 74176; 76377; 76857; 80048; 80076; 81003; 82550; 82553; 83605; 83690; 83735; 83880; 84145; 84153; 84484; 85025; 85610; 85730; 87077; 87086; 87088; 87186; 93005; 96361; 96365; 96375; 99285; J0360; J1650; J2405; J3010; J7030

== ENCOUNTER 2017-11-03 11:59 | Day surgery (SDC) | payer OTHER ==
[2017-11-01 15:23] LABS: Absolute Monocytes 0.6 K/uL (0.1-1.3); Absolute Neutrophil 2.2 K/uL (1.8-8.0); Basophils % 1.2 % (0-1.3); Eosinophils % 3.4 % (0-4.4); Hematocrit 45.7 % (39.6-49.0); Lymphocytes % 39.9 % (15.3-44.8); MCH 32.6 pg (27.0-35.0); MCV 97.4 fL (80-100); MPV 8.4 fL (7.6-11.3); Monocytes % 12.5 % (3.3-12.3); RBC Red Blood Cell Count 4.69 M/uL (4.33-5.43)
[2017-11-01 15:31] LABS: Protime INR 0.98
[2017-11-01 15:36] LABS: Urine Appearance CLEAR; Urine Bilirubin NEGATIVE (NEG); Urine Blood NEGATIVE (NEG); Urine Color YELLOW; Urine Glucose TRACE (NEG); Urine Protein NEGATIVE (NEG); Urine Specific Gravity >=1.030 (1.005-1.030); Urine Urobilinogen 0.2 mg/dL (0.2-1.0)
--- NOTE | 2017-11-01 15:38 | RAD REPORT ---
EXAM DESCRIPTION: Chris Vides (2 Views)11/01/2017 2:53 pm CLINICAL HISTORY: Preop for Green Light surgery/hypertension COMPARISON: August 2017 FINDINGS: The lungs appear clear of acute infiltrate. The heart is normal size IMPRESSION: No acute abnormalities displayed
[2017-11-01 15:42] LABS: BUN Blood Urea Nitrogen 14 mg/dL (7-18); Bicarbonate 28 mmol/L (21-32); Glucose Level 85 mg/dL (74-106); Potassium 4.3 mmol/L (3.5-5.1); Sodium Level 145 mmol/L (136-145)
[2017-11-01 15:52] LABS: Urine Microscopic Reflex ORDER UMIC
[2017-11-01 15:53] LABS: Urine Bacteria <20 /HPF (NONE SEEN); Urine Culture Reflex Order NOT NEEDED; Urine Mucus 1+ /HPF (NONE SEEN); Urine RBC <5 /HPF (NONE SEEN)
--- NOTE | 2017-11-01 20:36 | EKG ---
Test Date: 2017-11-01 Test Time: 15:24:08 Canoe Builder: DANE MEASUREMENT RESULTS: Intervals: Rate: 51 TN: 170 QRSD: 92 QT: 416 QTc: 383 [place]: P: 54 TN: 170 QRS: 51 T: 33 INTERPRETIVE STATEMENTS: Sinus bradycardia Nonspecific ST abnormality Abnormal ECG Compared to ECG 09/07/2017 19:19:36 ST (T wave) deviation now present Sinus rhythm no longer present Electronically Signed On 11-01-17 20:35:46 CDT by Brooks Stephens
--- OUTSIDE RECORDS SUMMARY | 2017-11-03 12:40 | XMS REPORT ---
:1950 [facility] Robin Joyner [address] [place] [id number] Care Team Providers Name Role Phone Unavailable [...] rt rib pain, left arm fx beforeMODALITY: [employer] dual head gamma cameraTECHNIQUE: 25 mCi Tc [...]
--- OUTSIDE RECORDS SUMMARY | 2017-11-03 12:40 | XMS REPORT | Clinical Summary ---
:1950 Author Organization [facility] Address [address] [place] [id number] Phone Care Team Providers Name Role Phone Unavailable Primary Care Provider Unavailable Allergies Not on File Current Medications Not on file Active Problems Not on file Social History Tobacco Use Types Packs/Day Years Used Date Never Assessed Sex Assigned at Date Recorded Not on file Last Filed Vital Signs Not on file Plan of Treatment Not on file Results Not on fileafter 11/02/2016
[2017-11-03] MEDS ORDERED: PROPOFOL 200 MG/20 ML VIAL IV ONE (13:02)
[2017-11-03] MEDS ORDERED: MIDAZOLAM HCL 2 MG/2 ML INJ ONE (13:03)
[2017-11-03] MEDS ORDERED: FENTANYL CITR 100 MCG/2 ML ONE (13:03)
[2017-11-03] MEDS ORDERED: LIDOCAINE 2% MPF 5 ML VIAL ONE (13:03)
[2017-11-03] MEDS ORDERED: MEPERIDINE HCL 50 MG/ML AMP ONE (14:18)
[2017-11-03] MEDS: OXYBUTYNIN CHLORIDE 5 MG TAB ONE ×2 (14:24→15:58)
[2017-11-03] MEDS ORDERED: PHENAZOPYRIDINE 100MG TAB PO ONE (14:25)
[2017-11-03] MEDS ORDERED: HYDROCODONE/APAP 10/325 TAB ONE (15:24)
[2017-11-03] MEDS ORDERED: OXYBUTYNIN ER 5 MG TAB PO ONE (16:00)
[2017-11-03] MEDS ORDERED: PHENAZOPYRIDINE 100MG TAB PO SCH (16:00)
[2017-11-03 16:54] VITALS: BP 132/68; TEMP 97.6; O2SAT 99
== END 2017-11-03 16:51 | disposition home or self-care (01) ==
LOC: OR 11:59
PROVIDERS: ATTEND Urology
PROC: 0VT08ZZ Resection of Prostate, Via Natural or Artificial Opening Endoscopic (ICD-10-PCS; principal; 2017-11-03 13:15)
DX: N40.0 Benign prostatic hyperplasia without lower urinary tract symptoms (principal); N52.9 Male erectile dysfunction, unspecified; R39.12 Poor urinary stream; N42.9 Disorder of prostate, unspecified
CPT/HCPCS: 36415; 52601; 71046; 80048; 85025; 85610; 85730; 86850; 86900; 86901; 87086; 87088; 93005; J2175; J2250; J3010; 81003; 81015

== ENCOUNTER 2019-03-06 18:27 | Observation (INO) | payer OTHER ==
--- OUTSIDE RECORDS SUMMARY | 2019-03-06 18:29 | XMS REPORT ---
:1950 [facility] Address [address] [place] [address] Dr. Joyner [address] [place] [address] Care Team Providers Name Role Phone Unavailable [...] rt rib pain, left arm fx beforeMODALITY: [employer] dual head gamma cameraTECHNIQUE: 25 mCi Tc [...]
--- NOTE | 2019-03-06 19:42 | EDPHYS ---
Physician Documentation [facility] Name: Jacinto Hinton Jr Age: 68 yrs Sex: Male : 1950 Arrival Date: 03/06/2019 Time: 18:28 Bed 20 Private MD: Jay Holder ED Physician Jin Penaloza HPI: 03/06 19:36 This 68 yrs old Male presents to ER via Ambulatory with complaints of cesar Shortness Of Breath. 19:36 The patient has shortness of breath at rest, with light activity. Onset: The cesar symptoms/episode began/occurred 5 day(s) ago. Duration: The symptoms are continuous, and are steadily getting worse. The patient's shortness of breath is aggravated by coughing, supine position, talking, walking, is alleviated by nebulizer treatment, sitting up, application of supplemental oxygen. Associated signs and symptoms: Pertinent positives: non-productive cough, dizziness. Severity of symptoms: At their worst the symptoms were mild moderate in the emergency department the symptoms are unchanged. The patient has experienced similar episodes in the past, a few times. Historical: - Allergies: 18:31 PENICILLINS; la1 - PMHx: 18:31 Hypertension; la1 - Immunization history:: Adult Immunizations up to date. - Social history:: Smoking status: Patient/guardian denies using tobacco. - Ebola Screening: : No symptoms or risks identified at this time. - Family history:: not pertinent. ROS: 19:36 Constitutional: Negative for fever, chills, and weight loss, Eyes: Negative for injury, cesar pain, redness, and discharge, ENT: Negative for injury, pain, and discharge, Neck: Negative for injury, pain, and swelling, Cardiovascular: Negative for chest pain, palpitations, and edema, Abdomen/GI: Negative for abdominal pain, nausea, vomiting, diarrhea, and constipation, Back: Negative for injury and pain, : Negative for injury, bleeding, discharge, and swelling, MS/Extremity: Negative for injury and deformity, Skin: Negative for injury, rash, and discoloration, Neuro: Negative for headache, weakness, numbness, tingling, and seizure, Psych: Negative for depression, anxiety, suicide ideation, homicidal ideation, and hallucinations, Allergy/Immunology: Negative for hives, rash, and allergies, Endocrine: Negative for neck swelling, polydipsia, polyuria, polyphagia, and marked weight changes, Hematologic/Lymphatic: Negative for swollen nodes, abnormal bleeding, and unusual bruising. 19:36 Respiratory: Positive for cough, shortness of breath, wheezing, inspiratory, expiratory. Exam: 19:36 Constitutional: This is a well developed, well nourished patient who is awake, alert, cesar and in no acute distress. Head/Face: Normocephalic, atraumatic. Eyes: Pupils equal round and reactive to light, extra-ocular motions intact. Lids and lashes normal. Conjunctiva and sclera are non-icteric and not injected. Cornea within normal limits. Periorbital areas with no swelling, redness, or edema. ENT: Nares patent. No nasal discharge, no septal abnormalities noted. Tympanic membranes are normal and external auditory canals are clear. Oropharynx with no redness, swelling, or masses, exudates, or evidence of obstruction, uvula midline. Mucous membranes moist. Neck: Trachea midline, no thyromegaly or masses palpated, and no cervical lymphadenopathy. Supple, full range of motion without nuchal rigidity, or vertebral point tenderness. No Meningismus. Chest/axilla: Normal chest wall appearance and motion. Nontender with no deformity. No lesions are appreciated. Cardiovascular: Regular rate and rhythm with a normal S1 and S2. No gallops, murmurs, or rubs. Normal PMI, no JVD. No pulse deficits. Abdomen/GI: Soft, non-tender, with normal bowel sounds. No distension or tympany. No guarding or rebound. No evidence of tenderness throughout. Back: No spinal tenderness. No costovertebral tenderness. Full range of motion. Male : Normal genitalia with no discharge or lesions. Skin: Warm, dry with normal turgor. Normal color with no rashes, no lesions, and no evidence of cellulitis. MS/ Extremity: Pulses equal, no cyanosis. Neurovascular intact. Full, normal range of motion. Neuro: Awake and alert, GCS 15, oriented to person, place, time, and situation. Cranial nerves II-XII grossly intact. Motor strength 5/5 in all extremities. Sensory grossly intact. Cerebellar exam normal. Normal gait. Psych: Awake, alert, with orientation to person, place and time. Behavior, mood, and affect are within normal limits. 19:36 Respiratory: mild respiratory distress is noted, Respirations: labored breathing, that is mild, Breath sounds: decreased breath sounds, rhonchi, wheezing: inspiratory expiratory Vital Signs: 18:31 Pulse 84; Resp 18; Temp 97.2; Pulse Ox 98% on R/A; Weight 102.06 kg; Height 5 ft. 9 in. la1 (175.26 cm); 18:32 BP 162 / 93; la1 19:30 BP 185 / 288; Pulse 55; Resp 16; Pulse Ox 98% on R/A; aj1 20:30 BP 180 / 91; Pulse 60; Resp 18; Pulse Ox 98% on R/A; aj1 21:30 BP 165 / 83; Pulse 88; Resp 18; Pulse Ox 96% on R/A; aj1 23:00 BP 162 / 83; Pulse 85; Resp 18; Pulse Ox 100% ; wh 18:31 Body Mass Index 33.23 (102.06 kg, 175.26 cm) la1 MDM: 19:17 Patient medically screened. [facility] 19:39 Data reviewed: vital signs, nurses notes, lab test result(s), EKG, radiologic studies, cesar plain films. 03/06 19:35 Order name: Basic Metabolic Panel; Complete Time: 20:26 [facility] 03/06 19:35 Order name: CBC with Diff; Complete Time: 20:26 [facility] 03/06 19:35 Order name: LFT's; Complete Time: 20:26 [facility] 03/06 19:35 Order name: Magnesium; Complete Time: 20:26 [facility] 03/06 19:35 Order name: NT PRO-BNP; Complete Time: 20:26 [facility] 03/06 19:35 Order name: PT-INR; Complete Time: 20:26 [facility] 03/06 19:35 Order name: Troponin (emerg Dept Use Only); Complete Time: 20:26 [facility] 03/06 19:35 Order name: Blood Culture Adult (2) [facility] 03/06 19:50 Order name: Basic Metabolic Panel [facility] 03/06 19:50 Order name: Basic Metabolic Panel [facility] 03/06 19:50 Order name: CBC with Automated Diff [facility] 03/06 19:50 Order name: CBC with Automated Diff [facility] 03/06 19:50 Order name: NT PRO-BNP [facility] 03/06 19:50 Order name: NT PRO-BNP [facility] 03/06 19:35 Order name: XRAY Chest (1 view); Complete Time: 20:26 [facility] 03/06 19:35 Order name: EKG; Complete Time: 19:37 [facility] 03/06 19:50 Order name: Heart Healthy [facility] 03/06 19:50 Order name: EKG Electrocardiogram [facility] 03/06 19:50 Order name: Troponin I [facility] 03/06 19:50 Order name: Troponin I [facility] 03/06 19:50 Order name: Troponin I [facility] 03/06 19:50 Order name: Chest Single View [facility] 03/06 19:50 Order name: Chest Single View [facility] 03/06 19:35 Order name: Cardiac monitoring; Complete Time: 19:53 [facility] 03/06 19:35 Order name: EKG - Nurse/Tech; Complete Time: 19:52 [facility] 03/06 19:35 Order name: IV Saline Lock; Complete Time: 19:52 [facility] 03/06 19:35 Order name: Labs collected and sent; Complete Time: 19:52 [facility] 03/06 19:35 Order name: O2 Per Protocol; Complete Time: 19:53 [facility] 03/06 19:35 Order name: O2 Sat Monitoring; Complete Time: 19:53 [facility] 03/06 19:50 Order name: EKG Electrocardiogram EDPR Administered Medications: 20:39 Drug: Rocephin 1 grams Route: IV; Rate: per protocol; Site: right antecubital; aj1 23:13 Follow up: Response: No adverse reaction; IV Status: Completed infusion 20:39 Drug: Zithromax 500 mg Route: PO; aj1 23:14 Follow up: Response: No adverse reaction 20:39 Drug: Xopenex 3.75 mg Route: Inhalation; aj1 20:39 Drug: AtroVENT Aerosol 0.5 mg Route: Inhalation; aj1 20:40 Drug: SOLU-Medrol 125 mg Route: IVP; Site: right antecubital; aj1 23:13 Follow up: Response: No adverse reaction 23:00 Drug: Decadron - Dexamethasone 10 mg Route: IVP; Site: right antecubital; 23:12 Follow up: Response: No adverse reaction 23:00 Drug: Xopenex 1.25 mg Route: Inhalation; 23:12 Follow up: Response: No adverse reaction; Wheezing diminished wh Disposition: 03/06/19 19:41 Hospitalization ordered by Jay Holder for Inpatient Admission. Preliminary diagnosis are Dyspnea - reactive airway, Bronchitis, not specified as acute or chronic, Chronic obstructive pulmonary disease with (acute) exacerbation. - Bed requested for Telemetry/MedSurg (Inpatient). - Status is Inpatient Admission. ph - Condition is Fair. - Problem is new. - Symptoms have improved. UTI on Admission? No Signatures: Dispatcher [employer] EDMS Sissy Martinez, RN RN aj1 Jin Penaloza MD MD cha Chretien, Felicia RN GAYLE Johnny Hutton RN RN la1 Shanthi Hillman RN GAYLE Aida Singh Rickey Morgan, RN RN ja1 Corrections: (The following items were deleted from the chart) 20: 19:41 Hospitalization Ordered by Jay Holder MD for Inpatient Admission. Preliminary [facility] diagnosis is Dyspnea - reactive airway; Bronchitis, not specified as acute or chronic. Bed requested for Telemetry/MedSurg (Inpatient). Status is Inpatient Admission. Condition is Fair. Problem is new. Symptoms have improved. UTI on Admission? No. [facility] 03/07 01:50 03/06 20:27 03/06/2019 19:41 Hospitalization Ordered by Jay Holder MD for Inpatient Admission. Preliminary diagnosis is Dyspnea - reactive airway; Bronchitis, not specified as acute or chronic; Chronic obstructive pulmonary disease with (acute) exacerbation. Bed requested for Telemetry/MedSurg (Inpatient). Status is Inpatient Admission. Condition is Fair. Problem is new. Symptoms have improved. UTI on Admission? No. [facility] 03/07 01:50 01:50 03/06/2019 19:41 Hospitalization Ordered by Jay Holder MD for Inpatient Admission. Preliminary diagnosis is Dyspnea - reactive airway; Bronchitis, not specified as acute or chronic; Chronic obstructive pulmonary disease with (acute) exacerbation. Bed requested for [facility] ER HOLD. Status is Inpatient Admission. Condition is Fair. Problem is new. Symptoms have improved. UTI on Admission? No. fc 06:25 01:50 03/06/2019 19:41 Hospitalization Ordered by Jay Holder MD for Inpatient [facility] Admission. Preliminary diagnosis is Dyspnea - reactive airway; Bronchitis, not specified as acute or chronic; Chronic obstructive pulmonary disease with (acute) exacerbation. Bed requested for [facility] ER HOLD. Status is Inpatient Admission. Condition is Fair. Problem is new. Symptoms have improved. UTI on Admission? No. fc 07:02 06:25 03/06/2019 19:41 Hospitalization Ordered by Jay Holder MD for Inpatient ph Admission. Preliminary diagnosis is Dyspnea - reactive airway; Bronchitis, not specified as acute or chronic; Chronic obstructive pulmonary disease with (acute) exacerbation. Bed requested for Telemetry/MedSurg (Inpatient). Status is Inpatient Admission. Condition is Fair. Problem is new. Symptoms have improved. UTI on Admission? No. ja1
--- NOTE | 2019-03-06 19:42 | ER ---
Nurse's Notes [facility] Name: Jacinto Hinton Jr Age: 68 yrs Sex: Male : 1950 Arrival Date: 03/06/2019 Time: 18:28 Bed 20 Private MD: Jay Holder Diagnosis: Dyspnea-reactive airway;Bronchitis, not specified as acute or chronic;Chronic obstructive pulmonary disease with (acute) exacerbation Presentation: 03/06 18:30 Presenting complaint: Patient states: URI sx since last week with cough, currently la1 taking levaquin, on the last days. Transition of care: patient was not received from another setting of care. Onset of symptoms was March 06, 2019. Risk Assessment: Do you want to hurt yourself or someone else? Patient reports no desire to harm self or others. Initial Sepsis Screen: Does the patient meet any 2 criteria? No. Patient's initial sepsis screen is negative. Does the patient have a suspected source of infection? No. Patient's initial sepsis screen is negative. Care prior to arrival: None. 18:30 Method Of Arrival: Ambulatory la1 18:30 Acuity: OWEN 3 la1 Triage Assessment: 22:00 Respiratory: Onset: The symptoms/episode began/occurred gradually, the patient has mild wh shortness of breath. Historical: - Allergies: 18:31 PENICILLINS; la1 - PMHx: 18:31 Hypertension; la1 - Immunization history:: Adult Immunizations up to date. - Social history:: Smoking status: Patient/guardian denies using tobacco. - Ebola Screening: : No symptoms or risks identified at this time. - Family history:: not pertinent. Screenin:35 Abuse screen: Denies threats or abuse. Denies injuries from another. Nutritional aj1 screening: No deficits noted. Tuberculosis screening: No symptoms or risk factors identified. 22:00 Fall Risk None identified. wh Assessment: 19:35 General: Appears in no apparent distress. comfortable, Behavior is calm, cooperative, aj1 appropriate for age. Pain: Denies pain. Neuro: Level of Consciousness is awake, alert, obeys commands, Oriented to person, place, time, situation. Cardiovascular: Heart tones S1 S2 present Patient's skin is warm and dry. Rhythm is sinus bradycardia. Respiratory: Reports shortness of breath on exertion cough that is hacking, persistent Airway is patent Respiratory effort is even, unlabored, Respiratory pattern is regular, symmetrical, Breath sounds with rhonchi bilaterally. Breath sounds with wheezes bilaterally. GI: No signs and/or symptoms were reported involving the gastrointestinal system. : No signs and/or symptoms were reported regarding the genitourinary system. EENT: No signs and/or symptoms were reported regarding the EENT system. Derm: No signs and/or symptoms reported regarding the dermatologic system. Skin is pink, warm \T\ dry. normal. Musculoskeletal: No signs and/or symptoms reported regarding the musculoskeletal system. Circulation, motion, and sensation intact. 20:35 Reassessment: Patient appears in no apparent distress at this time. No changes from [facility] previously documented assessment. Patient and/or family updated on plan of care and expected duration. Pain level reassessed. Patient is alert, oriented x 3, equal unlabored respirations, skin warm/dry/pink. 21:28 Reassessment: Patient appears in no apparent distress at this time. No changes from [facility] previously documented assessment. Patient and/or family updated on plan of care and expected duration. Pain level reassessed. Patient is alert, oriented x 3, equal unlabored respirations, skin warm/dry/pink. 22:00 Reassessment: Patient appears in no apparent distress at this time. Patient and/or wh family updated on plan of care and expected duration. Pain level reassessed. Patient is alert, oriented x 3, equal unlabored respirations, skin warm/dry/pink. 23:15 Reassessment: Patient appears in no apparent distress at this time. No changes from previously documented assessment. Patient and/or family updated on plan of care and expected duration. Pain level reassessed. Patient is alert, oriented x 3, equal unlabored respirations, skin warm/dry/pink. Patient denies pain at this time. Patient states feeling better. Patient states symptoms have improved. Vital Signs: 18:31 Pulse 84; Resp 18; Temp 97.2; Pulse Ox 98% on R/A; Weight 102.06 kg; Height 5 ft. 9 in. la1 (175.26 cm); 18:32 BP 162 / 93; la1 19:30 BP 185 / 288; Pulse 55; Resp 16; Pulse Ox 98% on R/A; aj1 20:30 BP 180 / 91; Pulse 60; Resp 18; Pulse Ox 98% on R/A; aj1 21:30 BP 165 / 83; Pulse 88; Resp 18; Pulse Ox 96% on R/A; aj1 23:00 BP 162 / 83; Pulse 85; Resp 18; Pulse Ox 100% ; wh 18:31 Body Mass Index 33.23 (102.06 kg, 175.26 cm) la1 ED Course: 18:28 Patient arrived in ED. as 18:29 Jay Holder MD is Private Physician. as 18:31 Triage completed. la1 18:31 Arm band placed on left wrist. la1 19:17 Jni Penaloza MD is Attending Physician. [facility] 19:31 Sissy Martinez RN is Primary Nurse. aj1 19:35 Warm blanket given. Verbal reassurance given. jp3 19:35 No provider procedures requiring assistance completed. aj1 19:38 EKG done, by ED staff, reviewed by Jin Penaloza MD. jp3 19:40 Jay Holder MD is Hospitalizing Provider. [facility] 19:42 Inserted saline lock: 20 gauge in right antecubital area, using aseptic technique. jp3 Blood collected. Patient maintains SpO2 saturation greater than 95% on room air. 19:42 Initial lab(s) drawn, by me, sent to lab. First set of blood cultures drawn by me from 3 RAC. 19:49 Bed in low position. Call light in reach. Side rails up X 1. Adult w/ patient. Cardiac jp3 monitor on. Pulse ox on. NIBP on. 19:51 X-ray(s) taken. jp3 19:53 XRAY Chest (1 view) Sent. 3 19:55 XRAY Chest (1 view) In Process Unspecified. EDMS 21:56 Report given to GAYLE Parra. aj1 03/07 00:00 Patient admitted, IV remains in place. Administered Medications: 03/06 20:39 Drug: Rocephin 1 grams Route: IV; Rate: per protocol; Site: right antecubital; aj1 23:13 Follow up: Response: No adverse reaction; IV Status: Completed infusion 20:39 Drug: Zithromax 500 mg Route: PO; aj1 23:14 Follow up: Response: No adverse reaction 20:39 Drug: Xopenex 3.75 mg Route: Inhalation; aj1 20:39 Drug: AtroVENT Aerosol 0.5 mg Route: Inhalation; [facility] 20:40 Drug: SOLU-Medrol 125 mg Route: IVP; Site: right antecubital; [facility] 23:13 Follow up: Response: No adverse reaction 23:00 Drug: Decadron - Dexamethasone 10 mg Route: IVP; Site: right antecubital; 23:12 Follow up: Response: No adverse reaction 23:00 Drug: Xopenex 1.25 mg Route: Inhalation; 23:12 Follow up: Response: No adverse reaction; Wheezing diminished Outcome: 19:41 Decision to Hospitalize by Provider. cesar 03/07 00:00 Admitted to ER Hold. Please see [facility] for further documentation. Condition: stable Instructed on the need for admit. 07:02 Patient left the ED. ph Signatures: Dispatcher [employer] EDSissy Wheeler RN RN aj1 Jin Penaloza MD MD cha Martinez, Amelia as Attema, Lee, RN RN la1 Hall, Patricia, RN RN Aida Singh Jacques Chowdhury jp3 Corrections: (The following items were deleted from the chart) 03/06 19:50 19:49 Warm blanket given. Verbal reassurance given. jp3 jp3
[2019-03-06] MEDS ORDERED: ONDANSETRON 4 MG/2 ML VIAL IV PRN (19:43)
[2019-03-06] MEDS ORDERED: MORPHINE 4 MG/ML SYR IV PRN (19:43)
[2019-03-06 19:59] LABS: Absolute Lymphocytes (CBC) 0.9 K/uL (0.7-4.9); Basophils % 0.3 % (0-1.3); Hematocrit 42.4 % (39.6-49.0); Lymphocytes % 19.6 % (15.3-44.8); MPV 8.5 fL (7.6-11.3); RBC Red Blood Cell Count 4.39 M/uL (4.33-5.43)
[2019-03-06] MEDS: METHYLPREDNISOLONE 40 MG INJ IV SCH (20:00)
--- NOTE | 2019-03-06 20:00 | RAD REPORT ---
EXAM DESCRIPTION: RAD - Chest Single View - 03/06/2019 7:55 pm CLINICAL HISTORY: COUGH Chest pain. COMPARISON: Chest Pa And Lat (2 Views) dated 03/10/2018; Chest Pa And Lat (2 Views) dated 11/01/2017; Chest Single View dated 09/07/2017; Chest Pa And Lat (2 Views) dated 03/29/2017 FINDINGS: Portable technique limits examination quality. The lungs are mildly emphysematous but grossly clear. The heart is normal in size. No displaced fract ures. IMPRESSION: No acute intrathoracic process suspected.
[2019-03-06 20:09] LABS: Protime INR 1.04
[2019-03-06 20:21] LABS: ALT/SGPT 73 U/L (12-78); AST/SGOT 36 U/L (15-37); Albumin 3.6 g/dL (3.4-5.0); Alkaline Phosphatase 75 U/L (45-117); BUN Blood Urea Nitrogen 16 mg/dL (7-18); Bicarbonate 29 mmol/L (21-32); Bilirubin Direct 0.1 mg/dL (0-0.2); Bilirubin Total 0.3 mg/dL (0.2-1.0); Glucose Level 138 mg/dL (74-106); Magnesium 2.1 mg/dL (1.8-2.4); NT PRO-BNP 290 pg/mL (<125); Potassium 4.3 mmol/L (3.5-5.1); Protein, Total 6.4 g/dL (6.4-8.2); Sodium Level 140 mmol/L (136-145); Troponin (Emerg Dept Use Only) < 0.02 ng/mL (0.0-0.045)
[2019-03-06] MEDS ORDERED: METHYLPREDNISOLONE 125 MG INJ ONE (20:25)
[2019-03-06] MEDS ORDERED: IPRATROPIUM BROM 0.5MG/2.5ML ONE (20:26)
[2019-03-06] MEDS ORDERED: CEFTRIAXONE/SWI 1gm 1 GM/10 ML SYR ONE (20:26)
[2019-03-06] MEDS ORDERED: LEVALBUTEROL 1.25 MG/3 ML NEB ONE ×2 (20:26→22:53)
[2019-03-06] MEDS ORDERED: AZITHROMYCIN 250 MG TAB ONE (20:26)
[2019-03-06] MEDS ORDERED: AZITHROMYCIN IV 500 MG in NA CHLORIDE 0.9% 250 ML IVPB SCH (21:00)
[2019-03-06] MEDS: FAMOTIDINE 20 MG/2 ML VIAL IV SCH (21:00)
[2019-03-06] MEDS: AZITHROMYCIN IV 500 MG in NA CHLORIDE 0.9% 250 ML IVPB SCH (21:00)
[2019-03-06] MEDS ORDERED: CEFTRIAXONE 1 GM/NS 50 ML 1 GM/50 ML BAG IV SCH (22:00)
[2019-03-06] MEDS ORDERED: FAMOTIDINE 20 MG/2 ML VIAL IV ONE (22:53)
[2019-03-06] MEDS ORDERED: dexAMETHasone 10 MG/ML VIAL ONE (22:53)
[2019-03-07] MEDS: ACETAMINOPHEN 500 MG TAB PO PRN ×3 (00:05→20:30)
[2019-03-07 00:07] VITALS: BMI 33.3
[2019-03-07] MEDS ORDERED: ACETAMINOPHEN 325 MG TABLET ONE (00:14)
[2019-03-07] MEDS: METHYLPREDNISOLONE 40 MG INJ IV SCH ×4 (02:00→20:57)
[2019-03-07] MEDS ORDERED: METHYLPREDNISOLONE 40 MG INJ ONE (02:40)
[2019-03-07 05:18] LABS: Absolute Lymphocytes (CBC) 0.7 K/uL (0.7-4.9); Basophils % 0.6 % (0-1.3); Hematocrit 40.8 % (39.6-49.0); Lymphocytes % 10.4 % (15.3-44.8); MPV 9.3 fL (7.6-11.3)
--- NOTE | 2019-03-07 05:30 | EKG ---
Test Date: 2019-03-06 Test Time: 19:26:10 Mine Expert: PATEL MEASUREMENT RESULTS: Intervals: Rate: 50 NC: 170 QRSD: 90 QT: 404 QTc: 368 [place]: P: 44 NC: 170 QRS: 34 T: 25 INTERPRETIVE STATEMENTS: Sinus bradycardia Otherwise normal ECG Compared to ECG 11/01/2017 15:24:08 ST (T wave) deviation no longer present Electronically Signed On 03-07-19 05:29:28 [employer] BLOWER by Brooks Stephens
[2019-03-07 08:07] LABS: Potassium 4.2 mmol/L (3.5-5.1)
[2019-03-07] MEDS: IPRATROPIUM BROM 0.5MG/2.5ML NEB PRN ×2 (08:15→13:18)
[2019-03-07] MEDS: ALBUTEROL 2.5 MG/3 ML NEB SOL NEB PRN ×2 (08:15→13:18)
[2019-03-07] MEDS: FAMOTIDINE 20 MG/2 ML VIAL IV SCH (08:19)
[2019-03-07] MEDS: ASPIRIN EC 81 MG TAB PO SCH (08:20)
--- NOTE | 2019-03-07 08:41 | RAD REPORT ---
EXAM DESCRIPTION: RAD - Chest Single View - 03/07/2019 6:54 am CLINICAL HISTORY: Chest Pain Chest pain. COMPARISON: Chest Single View dated 03/06/2019; Chest Pa And Lat (2 Views) dated 03/10/2018; Chest P a And Lat (2 Views) dated 11/01/2017; Chest Single View dated 09/07/2017 FINDINGS: Portable technique limits examination quality. The lungs are emphysematous but grossly clear. The heart is normal in size. No displaced fractures. IMPRESSION: No acute intrathoracic process suspected.
--- NOTE | 2019-03-07 09:00 | EKG ---
Test Date: 2019-03-07 Test Time: 07:20:33 [employer] Operator: RADHA MEASUREMENT RESULTS: Intervals: Rate: 79 ME: 178 QRSD: 92 QT: 372 QTc: 426 [place]: P: 55 ME: 178 QRS: 54 T: 26 INTERPRETIVE STATEMENTS: Normal sinus rhythm Nonspecific ST abnormality Abnormal ECG Compared to ECG 03/06/2019 19:26:10 ST (T wave) deviation now present Sinus bradycardia no longer present Electronically Signed On 03-07-19 08:59:50 VESSEL SLAGMAN by Jose Ramesh
[2019-03-07] MEDS ORDERED: GLUCAGON 1 MG/VIAL IM PRN (10:38)
[2019-03-07] MEDS ORDERED: D50W 25 GM/50 ML SYRINGE/VIAL IV PRN (10:38)
[2019-03-07] MEDS ORDERED: cloNIDine HCL 0.1 MG TAB PO PRN (10:52)
[2019-03-07] MEDS: INSULIN -REGULAR HUMAN 50 UNIT/0.5 ML ML SQ SCH ×3 (11:30→20:59)
[2019-03-07] MEDS: PANTOPRAZOLE 40MG TABLET PO SCH ×2 (11:37→20:58)
[2019-03-07] MEDS: LOSARTAN POTASSIUM 50 MG TABLET PO SCH ×2 (11:37→20:58)
[2019-03-07] MEDS: METFORMIN ER 500 MG TAB PO SCH (11:37)
[2019-03-07] MEDS: NEBIVOLOL HCL 20 MG TABLET PO SCH (11:37)
[2019-03-07 12:59] LABS: Blood Morphology Comment NOT SEEN (NOT SEEN); Platelet Estimate DECR; Urine White Blood Cell Casts OK
[2019-03-07] MEDS: LEVALBUTEROL 1.25 MG/3 ML NEB NEB SCH ×2 (16:03→20:00)
[2019-03-07] MEDS: IPRATROPIUM BROM 0.5MG/2.5ML NEB SCH ×2 (16:03→20:00)
[2019-03-07] MEDS ORDERED: CEFTRIAXONE/SWI 1gm 1 GM/10 ML SYR IV SCH (21:00)
[2019-03-07] MEDS ORDERED: ATORVASTATIN 10 MG TAB PO SCH (21:00)
[2019-03-07] MEDS: AZITHROMYCIN IV 500 MG in NA CHLORIDE 0.9% 250 ML IVPB SCH (21:00)
[2019-03-08] MEDS: TRAMADOL HCL 50 MG TAB PO PRN ×2 (01:33→12:00)
[2019-03-08] MEDS: METHYLPREDNISOLONE 40 MG INJ IV SCH ×3 (01:35→12:56)
[2019-03-08] MEDS: LEVALBUTEROL 1.25 MG/3 ML NEB NEB SCH ×4 (04:00→12:05)
[2019-03-08] MEDS: IPRATROPIUM BROM 0.5MG/2.5ML NEB SCH ×4 (04:00→12:05)
[2019-03-08] MEDS: LOSARTAN POTASSIUM 50 MG TABLET PO SCH (06:05)
[2019-03-08] MEDS: NEBIVOLOL HCL 20 MG TABLET PO SCH (06:05)
--- NOTE | 2019-03-08 07:00 | HP ---
Date of Admission: 03/06/2019 Chief Complaint: Shortness of breath. History Of Present Illness: Patient has had what he considered an acute flare up of his bronchitic c ondition for which he has been hospitalized for in the past. He usually is given intramuscular stero ids, uses inhaler and responds; however, at this time despite the above outlined treatment, patient c ontinued to get progressively worse as far as his dyspnea was concerned, audibly wheezing, minimal am ount of productive sputum and seen in emergency room, was admitted for more aggressive treatment. Past History: As above. Patient was last hospitalized approximately 2 years ago for similar situati on, required a few days of IV steroids, inhalation therapy, and some antibiotics. Patient also has a history of hypertension, which has been under good control. He has had no much musculoskeletal prob lems or hospitalized here in [place]. He has not had been diagnosed with any underlying lung conditi on and/or asthma as a child. Social History: Nonsmoker, nondrinker. Physical Examination: General: Patient is an elderly male, in mild respiratory distress. Vital Signs: Stable vital signs, audibly wheezing. Head and Neck: Normocephalic. Pupils equal and reactive to light and accommodation. Fundi negative. Trachea midline. Thyroid not palpable. ENT: Negative. Chest: High-pitched rhonchi throughout. Slight use of accessory muscles to breathe. Nonproductive cough. Cardiovascular: PMI midclavicular line. Heart: Sounds normal. Peripheral pulses are present and equal bilaterally. Abdomen: No organomegaly. Bowel sounds present. Extremities: Slightly dehydrated. Good tone and movement bilaterally. Reflexes: Physiologic. Rectal: Deferred. Impression: Acute asthmatic bronchitis. Plan: Patient will be admitted and placed on IV steroids, IV antibiotics, and inhalation therapy. E xpect it would take 1 or 2 days of treatment. HR/MODL Voice ID: [id number]
[2019-03-08] MEDS: INSULIN -REGULAR HUMAN 50 UNIT/0.5 ML ML SQ SCH ×2 (07:30→11:30)
[2019-03-08 08:29] VITALS: O2SAT 97
[2019-03-08] MEDS: ASPIRIN EC 81 MG TAB PO SCH (08:53)
[2019-03-08] MEDS: METFORMIN ER 500 MG TAB PO SCH (08:53)
[2019-03-08] MEDS: PANTOPRAZOLE 40MG TABLET PO SCH (08:53)
[2019-03-08] MEDS ORDERED: MORPHINE 2 MG/ML SYR IV PRN (10:59)
[2019-03-08 14:17] VITALS: BP 140/70; TEMP 97.5
== END 2019-03-08 13:18 | disposition home or self-care (01) ==
LOC: ER 18:27 → ERHOLD 19:56 → INTOOBSV 19:56 → 4TH 03-07 06:49
PROVIDERS: ADMIT Family Medicine; ATTEND Family Medicine
DX: J45.909 Unspecified asthma, uncomplicated (principal); I10 Essential (primary) hypertension; Z88.0 Allergy status to penicillin
CPT/HCPCS: 96365; 93005 ×2; 87040 ×2; 85025 ×2; 80048 ×2; 36415; 83735; 85610; 82947 ×5; 80076; 84484 ×3; 83880 ×2; 71045 ×2; 94640; 94760 ×3; 96375; 99285; 96366; J0456; J1100; J0696 ×2; J7030; J2930; J2920 ×7; G0378 ×4

== ENCOUNTER 2020-03-12 17:16 | Emergency (ER) | payer OTHER ==
[2020-03-12] MEDS ORDERED: ACETAMINOPHEN 325 MG TABLET ONE (18:13)
[2020-03-12 18:31] LABS: Absolute Lymphocytes (CBC) 1.1 K/uL (0.7-4.9); Basophils % 0.8 % (0-1.3); Hematocrit 41.7 % (39.6-49.0); Lymphocytes % 26.5 % (15.3-44.8); MPV 8.4 fL (7.6-11.3); RBC Red Blood Cell Count 4.35 M/uL (4.33-5.43)
[2020-03-12 18:38] LABS: BUN Blood Urea Nitrogen 11 mg/dL (7-18); Bicarbonate 28 mmol/L (21-32); Ferritin 657.1 ng/mL (26-388); Glucose Level 108 mg/dL (74-106); Potassium 4.2 mmol/L (3.5-5.1); Sodium Level 141 mmol/L (136-145); Troponin (Emerg Dept Use Only) < 0.02 ng/mL (0.0-0.045)
--- NOTE | 2020-03-12 19:09 | RAD REPORT ---
EXAM DESCRIPTION: RAD - Chest Single View - 03/12/2020 6:33 pm CLINICAL HISTORY: r/p pneumonia, chest tightness, low-grade fever, history of spouse with positive C OVID test COMPARISON: Portable March 07, 2019 ; CT chest May 18, 2019 TECHNIQUE: AP portable chest image was obtained 03/12/2020 6:33 pm . FINDINGS: Lung volumes are low. No peripheral mass or consolidation. No ground-glass opacification i dentifiable. Very mild or early ground-glass opacities can be masked by the shallow inspiration and b chas habitus affects. No significant failure or volume overload. Heart and vasculature are normal. No measurable pleural effusion and no pneumothorax. No acute bony abnormality seen. No acute aortic findings suspected. IMPRESSION: As detailed above, the limited examination shows no acute cardiopulmonary finding.
[2020-03-12 20:22] LABS: Urine Blood NEGATIVE (NEG); Urine Glucose NEGATIVE (NEG); Urine Protein NEGATIVE (NEG); Urine Specific Gravity 1.025 (1.005-1.030); Urine pH 5.5 (5.0-7.0)
--- NOTE | 2020-03-12 20:28 | RAD REPORT ---
EXAM DESCRIPTION: CT - Chest For Pe Angio - 03/12/2020 8:14 pm CLINICAL HISTORY: dyspnea, chest tightness COMPARISON: Thorax Wo Con dated 05/18/2019; Chest Single View dated 03/12/2020 TECHNIQUE: Dynamically enhanced 3 mm thick images of the chest were obtained during administration o f approximately 150mL Isovue 370 IV contrast. Coronal and oblique MIP reconstruction images were gene rated and reviewed. Exam utilizes a protocol to evaluate the pulmonary arterial tree. All CT scans are performed using dose optimization technique as appropriate and may include automated exposure control or mA/KV adjustment according to patient size. FINDINGS: No central pulmonary emboli are present. Segmental branch emboli of the upper lobes are un remarkable. Lower lobe segmental branch assessment is limited there is significant respiratory motion degradation. Overall accentuation of the interstitial markings noted. The aorta as imaged shows no acute or suspicious finding. No pericardial thickening or effusion. No dense mass or consolidation. There are few scattered ground-glass opacities present relatively min imal in degree. These are peripherally distributed. No pleural effusion or pleural thickening. No mediastinal or hilar suspicious masses. No chest wall masses or abnormal axillary lymphadenopathy. IMPRESSION: No pulmonary emboli identified. Peripheral lower lobe branch assessment is limited but e mboli are not suspected. Patient's interstitial pattern is accentuated by the amount of motion present. This could mask inters titial edema or infiltrate. The patient has a few scattered ground-glass opacities present. This is a minimal pattern that can be seen with atelectasis, edema or minimal infiltrate. These ground-glass opacities are not in an of themselves suspicious for COVID-19 pneumonia ; however, with a spouse positive for COVID this would be a consideration.
--- NOTE | 2020-03-13 07:22 | ER ---
Nurse's Notes [facility] Name: Jacinto Hinton Jr Age: 69 yrs Sex: Male : 1950 Arrival Date: 03/12/2020 Time: 17:19 Bed 13 Private MD: Jay Holder Diagnosis: Coronavirus infection, [id number] Presentation: 03/12 17:21 Chief complaint: Patient states: Symptoms started around Thanksgiving and tested vg1 positive on 03/05/20. Having chest tightness and last temperature was 99.0 and diarrhea started last night. States feels nauseated but denies vomiting. Chief complaint:. Coronavirus screen: Client presents with at least one sign or symptom that may indicate coronavirus-19. Standard/surgical mask placed on the client. Ebola Screen: Patient negative for fever greater than or equal to 101.5 degrees Fahrenheit, and additional compatible Ebola Virus Disease symptoms. Initial Sepsis Screen: Does the patient meet any 2 criteria?. Initial Sepsis Screen: Does the patient meet any 2 criteria? No. Patient's initial sepsis screen is negative. Does the patient have a suspected source of infection? No. Patient's initial sepsis screen is negative. Risk Assessment: Do you want to hurt yourself or someone else? Patient reports no desire to harm self or others. Onset of symptoms was March 07, 2020. 17:21 Method Of Arrival: Ambulatory [facility] 17:21 Acuity: OWEN 3 vg1 Triage Assessment: 17:25 General: Appears in no apparent distress. Behavior is calm, cooperative. Pain: vg1 Complains of pain in headache Pain currently is 3 out of 10 on a pain scale. Neuro: Level of Consciousness is awake, alert, obeys commands, Oriented to person, place, time, situation. Respiratory: Airway is patent Respiratory pattern is regular, symmetrical. Historical: - Allergies: 17:30 PENICILLINS; vg1 - PMHx: 17:30 Hypertension; vg1 - Immunization history:: Adult Immunizations up to date, Pneumococcal vaccine is not up to date, Flu vaccine is up to date. - Social history:: Smoking status: Patient denies any tobacco usage or history of. Screenin:45 Abuse screen: Denies threats or abuse. Denies injuries from another. Nutritional ca1 screening: No deficits noted. Tuberculosis screening: No symptoms or risk factors identified. Fall Risk None identified. Assessment: 17:45 General: Appears in no apparent distress. comfortable, Behavior is calm, cooperative, ca1 appropriate for age, Reports fever for feeling ill for fatigue for. Pain: Denies pain. Pain: Complains of pain in chest. all over Pain does not radiate. Pain began 1 day ago. Neuro: Level of Consciousness is awake, alert, obeys commands, Oriented to person, place, time, situation. Cardiovascular: Heart tones S1 S2 present Capillary refill < 3 seconds Patient's skin is warm and dry. Rhythm is sinus rhythm. Respiratory: Reports shortness of breath at rest cough that is productive, Airway is patent Respiratory effort is even, unlabored, Respiratory pattern is regular, symmetrical, Breath sounds are clear bilaterally. GI: Abdomen is round non-distended, Bowel sounds present X 4 quads. Abd is soft and non tender X 4 quads. Reports diarrhea. : No signs and/or symptoms were reported regarding the genitourinary system. EENT: No signs and/or symptoms were reported regarding the EENT system. Derm: Skin is intact, is healthy with good turgor, Skin is pink, warm \T\ dry. Musculoskeletal: Circulation, motion, and sensation intact. Capillary refill < 3 seconds. 18:30 Reassessment: Patient appears in no apparent distress at this time. Patient and/or ca1 family updated on plan of care and expected duration. Pain level reassessed. Patient is alert, oriented x 3, equal unlabored respirations, skin warm/dry/pink. 19:15 Reassessment: Patient appears in no apparent distress at this time. Patient and/or jb4 family updated on plan of care and expected duration. Pain level reassessed. Patient is alert, oriented x 3, equal unlabored respirations, skin warm/dry/pink. 20:15 Reassessment: Patient appears in no apparent distress at this time. Patient and/or jb4 family updated on plan of care and expected duration. Pain level reassessed. Patient is alert, oriented x 3, equal unlabored respirations, skin warm/dry/pink. 21:27 Reassessment: Patient appears in no apparent distress at this time. Patient and/or jb4 family updated on plan of care and expected duration. Pain level reassessed. Patient is alert, oriented x 3, equal unlabored respirations, skin warm/dry/pink. Vital Signs: 17:21 BP 157 / 91; Pulse 77; Resp 20; Temp 100.2; Pulse Ox 99% on R/A; Weight 99.79 kg; vg1 Height 5 ft. 9 in. (175.26 cm); Pain 3/10; 18:30 BP 133 / 81; Pulse 97; Resp 24 S; Temp 99.8(O); Pulse Ox 97% ; ca1 21:25 BP 155 / 109; Pulse 77; Resp 16; Pulse Ox 100% on R/A; jb4 17:21 Body Mass Index 32.49 (99.79 kg, 175.26 cm) vg1 ED Course: 17:19 Patient arrived in ED. ag5 17:19 Jay Holder MD is Private Physician. ag5 17:27 EKG completed in triage. Results shown to MD. vg1 17:29 Triage completed. vg1 17:29 Arm band placed on. vg1 17:39 Lisbeth Posada, GAYLE is Primary Nurse. ca1 17:44 Estefany Felton FNP-C [facility]. kb 17:44 Jin Penaloza MD is Attending Physician. kb 17:45 Patient has correct armband on for positive identification. Placed in gown. Bed in low ca1 position. Call light in reach. Side rails up X2. checkerer hand on. Pulse ox on. NIBP on. 17:56 No provider procedures requiring assistance completed. Patient maintains SpO2 ca1 saturation greater than 95% on room air. 18:12 Inserted saline lock: 20 gauge in right antecubital area, using aseptic technique. ca1 Blood collected. 18:12 Initial lab(s) drawn, by me, sent to lab. First set of blood cultures drawn by me. ca1 18:19 Second set of blood cultures drawn by me. ca1 18:36 pt states that she is going home, her number is [phone], call when pt is bd ready to be discharged. 21:25 IV discontinued, intact, bleeding controlled, No redness/swelling at site. Pressure jb4 dressing applied. Administered Medications: 17:59 Drug: Tylenol 650 mg Route: PO; ca1 19:09 Follow up: Response: No adverse reaction; Temperature is decreased ca1 Outcome: 20:43 Discharge ordered by . kb 21:25 Discharged to home ambulatory. jb4 21:25 Condition: stable 21:25 Discharge instructions given to patient, Instructed on discharge instructions, follow up and referral plans. Demonstrated understanding of instructions, follow-up care. 21:30 Patient left the ED. jb4 Signatures: Estefany Felton, VICE PRESIDENT REGULATORY-C VICE PRESIDENT REGULATORY-Ckb Birgit Petersen James, RN RN jb4 Lisbeth Posada RN RN [facility] Casimiro Wright 5 Ling Mullen, RN RN vg1 Corrections: (The following items were deleted from the chart) 17:42 17:40 General: Appears in no apparent distress. Behavior is calm, cooperative, vg1 vg1 17:42 17:40 Pain: Complains of pain in headache Pain currently is 3 out of 10 on a pain vg1 scale. vg1 17:42 17:40 Neuro: Level of Consciousness is awake, alert, obeys commands, Oriented to vg1 person, place, time, situation, vg1 17:42 17:40 Respiratory: Airway is patent Respiratory pattern is regular, symmetrical, vg1 vg1
--- NOTE | 2020-03-13 07:22 | EDPHYS ---
Physician Documentation [facility] Name: Jacinto Hinton Jr Age: 69 yrs Sex: Male : 1950 Arrival Date: 03/12/2020 Time: 17:19 Bed 13 Private MD: Jay Holder ED Physician Jin Penaloza HPI: 03/12 22:22 This 69 yrs old Male presents to ER via Ambulatory with complaints of Chest kb Tightness, Fever, COVID+. 22:22 The patient or guardian reports cough, difficulty breathing, flu symptoms. Onset: The kb symptoms/episode began/occurred 7 day(s) ago. Severity of symptoms: At their worst the symptoms were moderate, in the emergency department the symptoms are unchanged. Modifying factors: The symptoms are alleviated by nothing, the symptoms are aggravated by nothing. Associated signs and symptoms: Pertinent positives: diarrhea, fever. The patient has not experienced similar symptoms in the past. The patient has not recently seen a physician. "My was diagnosed with COVID last week, I started having symptoms on and tested positive yesterday. I've had a cough, shortness of breath, tightness in my chest when I breathe in and diarrhea. Dr Holder wanted me to come get an x-ray and make sure I wasn't getting dehydrated from the diarrhea.". Historical: - Allergies: 17:30 PENICILLINS; vg1 - PMHx: 17:30 Hypertension; vg1 - Immunization history:: Adult Immunizations up to date, Pneumococcal vaccine is not up to date, Flu vaccine is up to date. - Social history:: Smoking status: Patient denies any tobacco usage or history of. ROS: 22:19 ENT: Negative for injury, pain, and discharge, Back: Negative for injury and pain, kb MS/Extremity: Negative for injury and deformity, Skin: Negative for injury, rash, and discoloration, Neuro: Negative for headache, weakness, numbness, tingling, and seizure. 22:19 Constitutional: Positive for body aches, chills, fatigue, fever, malaise. 22:19 Cardiovascular: Positive for chest tightness upon inspiration. 22:19 Respiratory: Positive for cough, shortness of breath. 22:19 Abdomen/GI: Positive for diarrhea, Negative for abdominal pain, nausea and vomiting. Exam: 22:19 Constitutional: This is a well developed, well nourished patient who is awake, alert, kb and in no acute distress. Head/Face: Normocephalic, atraumatic. Chest/axilla: Normal chest wall appearance and motion. Nontender with no deformity. No lesions are appreciated. Cardiovascular: Regular rate and rhythm with a normal S1 and S2. No gallops, murmurs, or rubs. Normal PMI, no JVD. No pulse deficits. Respiratory: Lungs have equal breath sounds bilaterally, clear to auscultation and percussion. No rales, rhonchi or wheezes noted. No increased work of breathing, no retractions or nasal flaring. Abdomen/GI: Soft, non-tender, with normal bowel sounds. No distension or tympany. No guarding or rebound. No evidence of tenderness throughout. Skin: Warm, dry with normal turgor. Normal color with no rashes, no lesions, and no evidence of cellulitis. MS/ Extremity: Pulses equal, no cyanosis. Neurovascular intact. Full, normal range of motion. Neuro: Awake and alert, GCS 15, oriented to person, place, time, and situation. Cranial nerves II-XII grossly intact. Motor strength 5/5 in all extremities. Sensory grossly intact. Cerebellar exam normal. Normal gait. Vital Signs: 17:21 BP 157 / 91; Pulse 77; Resp 20; Temp 100.2; Pulse Ox 99% on R/A; Weight 99.79 kg; vg1 Height 5 ft. 9 in. (175.26 cm); Pain 3/10; 18:30 BP 133 / 81; Pulse 97; Resp 24 S; Temp 99.8(O); Pulse Ox 97% ; ca1 21:25 BP 155 / 109; Pulse 77; Resp 16; Pulse Ox 100% on R/A; jb4 17:21 Body Mass Index 32.49 (99.79 kg, 175.26 cm) vg1 MDM: 17:44 Patient medically screened. kb 20:42 Data reviewed: vital signs, nurses notes. Data interpreted: Pulse oximetry: on room air kb is 97 %. Interpretation: normal. Counseling: I had a detailed discussion with the patient and/or guardian regarding: the historical points, exam findings, and any diagnostic results supporting the discharge/admit diagnosis, lab results, radiology results, the need for outpatient follow up, a family practitioner, to return to the emergency department if symptoms worsen or persist or if there are any questions or concerns that arise at home. 22:19 ED course: Pt is nontoxic appearing. Sat 98% on room air. No resp distress. Diagnostics kb reviewed with ERP. Both in agreement with outpatient treatment and follow up. Pt educated on return precautions and verbal understanding received. . 03/12 17:54 Order name: Urine Dipstick-Ancillary (obtain specimen); Complete Time: 20:01 kb 03/12 17:54 Order name: Cardiac monitoring; Complete Time: 18:21 kb 03/12 17:54 Order name: Droplet/Contact Precautions; Complete Time: 18:21 kb 03/12 17:54 Order name: EKG - Nurse/Tech; Complete Time: 18:29 kb 03/12 17:54 Order name: IV Start; Complete Time: 18:29 kb 03/12 17:54 Order name: Labs collected and sent; Complete Time: 18:29 kb 03/12 17:54 Order name: O2 Per Protocol; Complete Time: 18:29 kb 03/12 17:54 Order name: O2 Sat Monitoring; Complete Time: 18:29 kb Administered Medications: 17:59 Drug: Tylenol 650 mg Route: PO; ca1 19:09 Follow up: Response: No adverse reaction; Temperature is decreased ca1 Disposition: 03/13 07:49 Co-signature as Attending Physician, Jin Penaloza MD I agree with the assessment and cesar plan of care. Disposition: 03/12/20 20:43 Discharged to Home. Impression: Coronavirus infection, unspecified - COVID-19. - Condition is Stable. - Discharge Instructions: COVID-19. - Prescriptions for dexamethasone 2 mg Oral tablet - take 2 tablet by ORAL route 2 times per day for 5 days; 20 tablet. Zithromax 500 mg Oral Tablet - take 1 tablet by ORAL route once daily for 5 days; 5 tablet. - Medication Reconciliation Form, Thank You Letter, Antibiotic Education, Prescription Opioid Use form. - Follow up: Emergency Department; When: As needed; Reason: Worsening of condition. Follow up: Private Physician; When: 2 - 3 days; Reason: Recheck today's complaints, Continuance of care, Re-evaluation by your physician. Signatures: Estefany Felton FNP-C FNP-CkJin Rehman MD MD cha Bryson, James, RN RN jb4 Lisbeth Posada, RN RN ca1 Ling Mullen, RN RN vg1 Corrections: (The following items were deleted from the chart) 03/12 20:43 20:42 Counseling: I had a detailed discussion with the patient and/or guardian rimma regarding: the historical points, exam findings, and any diagnostic results supporting the discharge/admit diagnosis, the need for outpatient follow up, a family practitioner, to return to the emergency department if symptoms worsen or persist or if there are any questions or concerns that arise at home, rimma 21:30 20:43 03/12/2020 20:43 Discharged to Home. Impression: Coronavirus infection, jb4 unspecified - COVID-19. Condition is Stable. Forms are Medication Reconciliation Form, Thank You Letter, Antibiotic Education, Prescription Opioid Use. Follow up: Emergency Department; When: As needed; Reason: Worsening of condition. Follow up: Private Physician; When: 2 - 3 days; Reason: Recheck today's complaints, Continuance of care, Re-evaluation by your physician. kb
== END 2020-03-12 21:30 | disposition home or self-care (01) ==
LOC: ER 17:16
DX: U07.1 COVID-19 (principal); I10 Essential (primary) hypertension; Z88.0 Allergy status to penicillin
CPT/HCPCS: 87040 ×2; 85025; 80048; 36415; 85379; 83605; 81003; 84484; 82728; 84145; 86140; 71275; 71045; Q9967; 93005; 99285